=== PATIENT | female | born 1965 | race Caucasian/White ===

== ENCOUNTER 2017-03-26 18:03 | Emergency (ER) | payer MEDICAID ==
[2017-03-26] MEDS ORDERED: Sodium Chloride 0.9% 1,000 ML IV ONE ×2 (18:44→22:39)
[2017-03-26] MEDS ORDERED: Morphine 4 MG/ML VIAL ONE (19:05)
[2017-03-26] MEDS ORDERED: Sodium Chloride 0.9% 1,000 ML ONE ×2 (19:05→22:50)
[2017-03-26 19:08] LABS: BASO % 0.3 % (0.0-2.0); EOS # 0.1 K/uL (0.0-0.7); EOS % 0.5 % (0.0-4.0); HEMATOCRIT 32.5 % (34.0-47.0); LYMPH # 1.2 K/uL (1.0-4.3); LYMPH % 8.8 % (20.0-40.0); MEAN CELL VOLUME 89.5 fL (81.0-99.0); MEAN CORPUSCULAR HEMOGLOBIN 29.8 pg (27.0-31.0); MEAN CORPUSCULAR HGB CONC 33.2 g/dL (33.0-37.0); MEAN PLATELET VOLUME 7.7 fL (7.2-11.7); MONO # 0.6 K/uL (0.0-0.8); MONO % 4.3 % (0.0-10.0); PLATELET COUNT 297 K/uL (130-400); RED CELL DISTRIBUTION WIDTH 13.3 % (11.5-14.5); WHITE BLOOD COUNT 13.8 K/uL (4.8-10.8)
[2017-03-26 19:19] LABS: CHLORIDE 101 mmol/L (98-107); POTASSIUM 3.6 mmol/L (3.6-5.2); SODIUM 138 mmol/L (132-148)
[2017-03-26 19:21] LABS: BILIRUBIN,TOTAL 0.8 mg/dL (0.2-1.3); GFR AFRICAN-AMERICAN > 60
[2017-03-26 19:22] LABS: ALKALINE PHOSPHATASE 75 U/L (38-126); ALT/SGPT 23 U/L (9-52); AST/SGOT 19 U/L (14-36); BLOOD UREA NITROGEN 16 mg/dL (7-17); CARBON DIOXIDE 23 mmol/L (22-30); GLUCOSE,RANDOM 151 mg/dL (65-105)
[2017-03-26 20:21] LABS: BASOPHIL 1 % (0-2); EOSINOPHIL 1 % (0-4); NEUTROPHIL 91 % (50-75); TOTAL CELLS COUNTED 100
--- NOTE | 2017-03-26 22:30 | US ---
EXAM: US Abdomen Limited, Right Upper Quadrant CLINICAL HISTORY: 52 years old, female; Pain; Abdominal pain; Epigastric; Additional info: Ruq pain TECHNIQUE: Real-time ultrasound of the right upper quadrant with image documentation. EXAM DATE/TIME: 03/26/2017 6:45 PM COMPARISON: CT - ABD PELVIS PO IV CONTRAST 10/10/2015 1:56:36 PM FINDINGS: Liver: Liver is enlarged. Hepatic echogenicity is heterogeneous. There is hepatopedal flow in the main portal vein. Gallbladder : Gallbladder is distended with stones and sludge. Gallbladder wall measures 2.5 mm in width. Common duct in the ramesh hepatis measures 4.5 mm. Distal duct is difficult to delineate. Common bile duct: See above Pancreas: Pancreas is partially obscured by bowel gas. There is small hypoechoic lesions adjacent to the pancreatic head. Right kidney: Right kidney measures 11.4 cm in length. There is increased echogenicity of the renal pyramids. There are small renal cysts. Aorta: Visualized portions of the aorta and inferior vena cava are unremarkable. IMPRESSION: Fatty liver; nephrocalcinosis; gallstones; possible peripancreatic nodes
[2017-03-26] MEDS ORDERED: Sodium Chloride 0.9% 250 ML IV ONE (22:50)
[2017-03-26 23:06] LABS: RBC URINE 12 /hpf (0-3); URINE BACTERIA FEW (<OCC); URINE BILIRUBIN NEGATIVE (NEGATIVE); URINE BLOOD 1+ (NEGATIVE); URINE COLOR Yellow (YELLOW); URINE GLUCOSE (UA) NORMAL (Normal); URINE KETONE NEGATIVE (NEGATIVE); URINE LEUKOCYTE ESTERASE 1+ Leu/uL (Negative); URINE PROTEIN 1+ mg/dL (NEGATIVE); URINE UROBILINOGEN NORMAL mg/dL (0.2-1.0); WBC URINE 28 /hpf (0-5)
--- NOTE | 2017-03-27 00:30 | CT ---
EXAM: CT Abdomen and Pelvis Without Intravenous Contrast CLINICAL HISTORY: 52 years old, female; Pain; Abdominal pain; Localized; Right; Additional info: Right sided abdominal pain, h/o gall+kidney stones TECHNIQUE: Axial computed tomography images of the abdomen and pelvis without intravenous contrast. This CT exam was performed using one or more of the following dose reduction techniques: automated exposure control, adjustment of the mA and/or kV according to patient size, and/or use of iterative reconstruction technique. Coronal and sagittal reformatted images were created and reviewed. EXAM DATE/TIME: 03/26/2017 11:46 PM COMPARISON: CT - ABD PELVIS PO IV CONTRAST 10/10/2015 1:56:36 PM FINDINGS: Lower thorax: Heart size is normal. Bases are clear ABDOMEN: Liver: There is fatty infiltration of the liver. Liver is mildly enlarged Gallbladder and bile ducts: Gallbladder is distended. There are multiple stones. Common bile duct is mildly prominent. Pancreas: unremarkable Spleen: unremarkable Adrenals: There is a 3.2 x 2.5 cm right adrenal nodule, unchanged. Left adrenal is unremarkable. Kidneys and ureters: There are calcifications in the renal pyramids bilaterally. There is a 1.7 cm exophytic right upper pole lesion not a cyst by CT criteria.There is no pelvocaliectasis or ureterectasis. Stomach and bowel: Stomach is incompletely distended rotation is normal. There is no small bowel obstruction. Terminal ileum is unremarkable.Appendix is not visualized. There is no pericecal inflammation.Colon is incompletely distended which limits evaluation. Appendix: See stomach and bowel PELVIS: Bladder: unremarkable Reproductive: Uterus and right adnexal structures are unremarkable. There is a 4 cm left adnexal cyst. ABDOMEN and PELVIS: Intraperitoneal space: There is no significant fluid.There is no free air. Bones/joints: There is sclerosis at the sacroiliac joints greatest on the left.There are degenerative changes in the osseus structures. Soft tissues: unremarkable Vasculature: There are vascular calcifications.There are calcified phleboliths. Lymph nodes: There are shotty para-aortic nodes. Lack of oral and intravenous contrast limits evaluation of the ramesh hepatis and. Pancreatic soft tissues. IMPRESSION: Gallstones; no acute solid visceral or bowel abnormality; nephrocalcinosis, unchanged; right adrenal nodule, unchanged; prominent left adnexa with a 4 cm cyst Additional findings as described above.
--- NOTE | 2017-03-27 00:38 | C.PDOC ---
Time Seen by Provider: 03/26/17 18:37 Chief Complaint (Nursing): Abdominal Pain History Per: Patient Onset/Duration Of Symptoms: Hrs Current Symptoms Are (Timing): Still Present Severity: Moderate Location Of Pain/Discomfort: RUQ Radiation Of Pain To:: Back Associated Symptoms: Nausea, Vomiting Alleviating Factors: None Additional History Per: Prior Records Past Medical History Reviewed: Historical Data, Nursing Documentation, Vital Signs Vital Signs: Last Vital Signs Temp 98.6 F 03/26/17 18:08 Pulse 96 H 03/26/17 18:08 Resp 20 03/26/17 18:08 BP 124/65 03/26/17 19:17 Pulse Ox 96 03/26/17 18:08 - Medical History PMH: Gall Bladder Disease, HTN Surgical History: No Surg Hx Family History: States: Unknown Family Hx - Social History Hx Tobacco Use: No Hx Alcohol Use: No Hx Substance Use: No - Immunization History Hx Tetanus Toxoid Vaccination: No Hx Influenza Vaccination: Yes (08/2016) Hx Pneumococcal Vaccination: No Review Of Systems Except As Marked, All Systems Reviewed And Found Negative. Constitutional: Negative for: Fever, Weakness Cardiovascular: Negative for: Chest Pain Respiratory: Negative for: Cough, Shortness of Breath Gastrointestinal: Positive for: Nausea, Vomiting, Abdominal Pain Genitourinary: Positive for: Vaginal Bleeding (Pt is currently on her menstrual period). Negative for: Dysuria Musculoskeletal: Positive for: Back Pain. Negative for: Neck Pain Skin: Negative for: Rash Neurological: Negative for: Weakness, Numbness, Seizures, Altered Mental Status Physical Exam - Physical Exam Appears: Non-toxic, Other (Uncomfortable) Skin: Normal Color, Warm, Dry, No Rash Head: Atraumatic, Normacephalic Eye(s): bilateral: Normal Inspection, PERRL, EOMI Neck: Normal ROM, Supple Cardiovascular: Rhythm Regular Respiratory: Normal Breath Sounds, No Accessory Muscle Use Gastrointestinal/Abdominal: Soft, Tenderness (RUQ), No Guarding, No Rebound Back: CVA Tenderness (right) Extremity: Normal ROM Neurological/Psych: Oriented x3, Normal Motor, Normal Sensation ED Course And Treatment - Laboratory Results Result Diagrams: 03/26/17 19:05 03/26/17 19:05 Urine POC: Negative O2 Sat by Pulse Oximetry: 96 Pulse Ox Interpretation: Normal - CT Scan/US RUQ Sono Other Rad Studies (CT/US): Read By Radiologist, Radiology Report Reviewed CT/US Interpretation: IMPRESSION: Fatty liver; nephrocalcinosis; gallstones; possible peripancreatic nodes CT abdomen/pelvis Other Rad Studies (CT/US): Read By Radiologist, Radiology Report Reviewed CT/US Interpretation: IMPRESSION: Gallstones; no acute solid visceral or bowel abnormality;. nephrocalcinosis, unchanged; right adrenal nodule, unchanged; prominent left. adnexa with a 4 cm cyst Progress - Interventions Interventions:: Observation, Intravenous fluid - Medications Administered Intravenous: Antiemetic, H-2 elen, NSAID, Opiate - Data Reviewed Data Reviewed: Lab, Diagnostic imaging, Old records - Patient Status Patient status: Completely improved - Continuity of Care Discussed patient case with:: Patient, ED Nurse - Patient Plan Patient Plan: Discharge, F/U with PCP, Continue present meds Disposition Counseled Patient/Family Regarding: Studies Performed, Diagnosis, Need For Followup - Disposition Referrals: Bárbara Perales MD [Staff Provider] - Param Scanlon MD [Staff Provider] - Disposition: HOME/ ROUTINE Disposition Time: 00:43 Condition: IMPROVED Additional Instructions: Follow up with your kidney doctor for further evaluation of you nephrocalcinosis. Follow up with a surgeon for further evaluation of you gallstones. Return to the ER if you develop fever, vomiting, worsening of symptoms or if you have any other concerns. Instructions: Gallstones (ED) - Clinical Impression Clinical Impression: Nephrocalcinosis, Gallstones, Fatty liver
[2017-03-27 00:58] VITALS: BP 108/73; PULSE 90; RESP 18; TEMP 97.9; O2SAT 100
--- NOTE | 2017-03-28 07:54 | CARD ---
APPROVED REPORT EKG Measurement Heart [id number] <Conclusion> Normal sinus rhythm Normal ECG
== END 2017-03-27 00:58 | disposition home or self-care (01) ==
LOC: C.ER 18:03
DX: K80.20 Calculus of gallbladder without cholecystitis without obstruction (principal); E83.59 Other disorders of calcium metabolism; N29 Other disorders of kidney and ureter in diseases classified elsewhere; K76.0 Fatty (change of) liver, not elsewhere classified
CPT/HCPCS: 74176; 76705; 80053; 81001; 83690; 84703; 85025; 85610; 85730; 93005; 96361; 96374; 96375; 99285; J1885; J2270; J2765; J7040

== ENCOUNTER 2017-08-30 09:32 | Inpatient (IN) | payer MEDICAID ==
[2017-08-30] MEDS ORDERED: Sodium Chloride 0.9% 1,000 ML IV ONE ×2 (10:04→11:27)
--- NOTE | 2017-08-30 10:06 | C.PDOC ---
History Of Present Illness 52 y/o female presents to ED with c/o diffuse abdominal pain associated with vomiting since yesterday . Patient reports cholecystectomy 2 months ago. Denies fever, chills, diarrhea. Time Seen by Provider: 08/30/17 09:41 Chief Complaint (Nursing): Abdominal Pain History Per: Patient History/Exam Limitations: no limitations Onset/Duration Of Symptoms: Days Current Symptoms Are (Timing): Still Present Location Of Pain/Discomfort: Diffuse Radiation Of Pain To:: None Associated Symptoms: Vomiting. denies: Fever, Diarrhea, Back Pain, Chest Pain Recent travel outside of the [place]: No Past Medical History Reviewed: Historical Data, Nursing Documentation, Vital Signs Vital Signs: Last Vital Signs Temp 100.7 F H 08/30/17 15:40 Pulse 102 H 08/30/17 15:40 Resp 16 08/30/17 15:40 BP 105/48 L 08/30/17 15:40 Pulse Ox 100 08/30/17 15:40 - Medical History PMH: Gall Bladder Disease, HTN Surgical History: Cholecystectomy Family History: States: Unknown Family Hx - Social History Hx Tobacco Use: No Hx Alcohol Use: No Hx Substance Use: No - Immunization History Hx Tetanus Toxoid Vaccination: No Hx Influenza Vaccination: Yes (08/2016) Hx Pneumococcal Vaccination: No Review Of Systems Except As Marked, All Systems Reviewed And Found Negative. Constitutional: Negative for: Fever Respiratory: Negative for: Cough, Wheezing Gastrointestinal: Positive for: Vomiting, Abdominal Pain Skin: Negative for: Rash Physical Exam - Physical Exam Appears: Non-toxic, No Acute Distress Skin: Warm, Dry Head: Atraumatic, Normacephalic Oral Mucosa: Moist Chest: Symmetrical Cardiovascular: Rhythm Regular Respiratory: Normal Breath Sounds, No Rales, No Rhonchi, No Wheezing Gastrointestinal/Abdominal: Soft, Tenderness (diffuse greatest in upper abdomen) , No Guarding, No Rebound Back: Normal Inspection Extremity: Normal ROM, Capillary Refill (< 2 sec. ) Neurological/Psych: Oriented x3, Normal Speech, Normal Cognition Gait: Steady ED Course And Treatment - Laboratory Results Result Diagrams: 08/30/17 10:13 08/30/17 10:13 Lab Interpretation: Abnormal ECG: Interpreted By Me ECG Rhythm: Sinus Tachycardia ECG Interpretation: No Acute Changes Rate From EC O2 Sat by Pulse Oximetry: 100 (RA) Pulse Ox Interpretation: Normal - Other Rad No standard instances X-Ray: Viewed By Me, Read By Radiologist Interpretation: FINDINGS: LOWER THORAX: Unremarkable. LIVER: Unremarkable. No gross lesion or ductal dilatation. GALLBLADDER AND BILE DUCTS: Interval cholecystectomy. PANCREAS: Unremarkable. No gross lesion or ductal dilatation. SPLEEN: Unremarkable. ADRENALS: Stable appearance of right adrenal adenoma. KIDNEYS AND URETERS: Right upper pole exophytic cyst redemonstrated. Calcified renal pyramids bilaterally. No hydronephrosis. VASCULATURE: Unremarkable. No aortic aneurysm. BOWEL: Unremarkable. No obstruction. No gross mural thickening. APPENDIX: Nonvisualized. PERITONEUM: Soft tissue lesions measuring up to 1.9 centimeter (series 3, image 64), 1.6 centimeter (series 3, image 72 and up to 2.5 centimeter (series 3, image 80) in the right upper quadrant with surrounding hazy change. The largest of the appears to have a radiopacity within its center. No free fluid. No free air. LYMPH NODES: Unremarkable. No enlarged lymph nodes. BLADDER: Unremarkable. REPRODUCTIVE: Prominent right adnexa. BONES: No acute fracture. OTHER FINDINGS: None. IMPRESSION: Interval cholecystectomy. Right upper quadrant soft tissue lesions with surrounding hazy change, the largest of which measures up to 2.5 centimeter and is located along the medial border of the inferior right hepatic lobe and appears to contain a radiopacity within its center. These are felt to most likely represent dropped gallstones with surrounding inflammatory change. However, metastatic deposits from an unknown primary cannot be excluded. No organized, drainable fluid collection is present. Additional stable findings as above. - CT Scan/US No standard instances Other Rad Studies (CT/US): Read By Radiologist, Radiology Report Reviewed CT/US Interpretation: FINDINGS: LIVER: Measures 18.8 cm in sagittal dimension. Echogenic liver may be seen in setting of hepatic parenchymal disease or fatty infiltration. The main portal vein appears patent with normal directional flow. No intrahepatic bile duct dilatation. Hypoechoic 2.5 x 1.9 x 3.1 cm lesion at the level the right hepatic lobe. This does not appear to represent the known right-sided adrenal mass seen on CT performed 03/27/17. GALLBLADDER: Cholecystectomy. COMMON BILE DUCT: Measures 1.2 cm. PANCREAS: The pancreas is not well visualized. Hypoechoic lesion noted at the level of the pancreatic head/ body measures approximately 2.5 x 1.8 x 2.6 cm. RIGHT KIDNEY: Measures 12.6 x 4.2 x 5.0cm. No obstructing calculus or hydronephrosis identified. Nonobstructing calculi. LEFT KIDNEY: Measures 11.2 x 4.9 x 4.8cm. No obstructing calculus or hydronephrosis identified. Nonobstructing calculi. SPLEEN: Measures approximately 11.1 cm. AORTA: Limited views appear unremarkable. IVC: Limited views appear unremarkable. OTHER FINDINGS: None. IMPRESSION: Hypoechoic 2.5 x 1.9 x 3.1 cm lesion at the level the right hepatic lobe. This does not appear to represent the known right-sided adrenal mass seen on CT performed 03/27/17. Suggest further evaluation with cross-sectional imaging. The pancreas is not well visualized. Hypoechoic lesion noted at the level of the pancreatic head/ body measures approximately 2.5 x 1.8 x 2.6 cm. Considerations include malignant neoplasm or adenopathy which must be excluded. Recommend clinical correlation. Suggest dedicated pancreatic protocol CT if indicated. Nonobstructing bilateral renal calculi. Echogenic liver may be seen in setting of hepatic parenchymal disease or fatty infiltration. Cholecystectomy. Progress Note: Treated with zofran and IVF NSS. treated with additional IVF and toradol. On re-evaluation abdomen soft mild upper abdominal tenderness. Treated with zosyn and morphine. Case discussed and patient evaluated by surgical aides teacher - Physician Consult Information Physician Contacted: Darvin Ford Disposition Discussed With : Darvin Ford Doctor Will See Patient In The: Hospital - Disposition Disposition: HOSPITALIZED Disposition Time: 15:15 Condition: STABLE - POA Present On Arrival: None - Clinical Impression Clinical Impression: Leukocytosis, Abdominal pain - PA / FIELD SALES CONSULTANT / Resident Statement MD/DO has reviewed & agrees with the documentation as recorded. - Scribe Statement The provider has reviewed the documentation as recorded by the Scribe All medical record entries made by the Scribe were at my direction and personally dictated by me. I have reviewed the chart and agree that the record accurately reflects my personal performance of the history, physical exam, medical decision making, and the department course for this patient. I have also personally directed, reviewed, and agree with the discharge instructions and disposition. Decision To Admit - Pt Status Changed To: Hospital Disposition Of: Inpatient - Admit Certification Admit to Inpatient:: After my assessment, the patient will require hospitalization for at least two midnights. This is because of the severity of symptoms shown, intensity of services needed, and/or the medical risk in this patient being treated as an outpatient. - InPatient: Physician Admission Certification:: Abdominal Pain - . Bed Request Type: Regular Admitting Physician: Darvin Ford Patient Diagnosis: Abdominal pain, Leukocytosis
[2017-08-30] MEDS ORDERED: Sodium Chloride 0.9% 0 ML ONE (10:15)
[2017-08-30 10:17] LABS: BASO % 0.1 % (0.0-2.0); EOS % 0.1 % (0.0-4.0); HEMATOCRIT 33.5 % (34.0-47.0); LYMPH # 0.6 K/uL (1.0-4.3); LYMPH % 3.8 % (20.0-40.0); MEAN CELL VOLUME 88.8 fL (81.0-99.0); MEAN CORPUSCULAR HEMOGLOBIN 29.6 pg (27.0-31.0); MEAN CORPUSCULAR HGB CONC 33.3 g/dL (33.0-37.0); MEAN PLATELET VOLUME 7.3 fL (7.2-11.7); MONO # 0.4 K/uL (0.0-0.8); MONO % 2.4 % (0.0-10.0); NRBC % 0.1 % (0.0-2.0); PLATELET COUNT 363 K/uL (130-400); RED CELL DISTRIBUTION WIDTH 14.1 % (11.5-14.5)
[2017-08-30 10:34] LABS: POTASSIUM 3.5 mmol/L (3.6-5.2); TOTAL PROTEIN 9.3 g/dL (6.3-8.3)
[2017-08-30 10:35] LABS: ALB/GLOB RATIO 0.8 (1.0-2.1)
[2017-08-30 10:36] LABS: BILIRUBIN,TOTAL 1.5 mg/dL (0.2-1.3); CALCIUM 8.5 mg/dl (8.6-10.4)
[2017-08-30 11:10] LABS: NEUTROPHIL 85 % (50-75); TOTAL CELLS COUNTED 100
[2017-08-30] MEDS ORDERED: Sodium Chloride 0.9% 1,000 ML ONE (11:36)
[2017-08-30 11:48] LABS: RBC URINE 11 /hpf (0-3); URINE BACTERIA RARE (<OCC); URINE BILIRUBIN NEGATIVE (NEGATIVE); URINE BLOOD 1+ (NEGATIVE); URINE COLOR Yellow (YELLOW); URINE GLUCOSE (UA) NORMAL (Normal); URINE KETONE NEGATIVE (NEGATIVE); URINE LEUKOCYTE ESTERASE 1+ Leu/uL (Negative); URINE PROTEIN 2+ mg/dL (NEGATIVE); URINE UROBILINOGEN NORMAL mg/dL (0.2-1.0); WBC URINE 21 /hpf (0-5)
--- NOTE | 2017-08-30 12:43 | US ---
HISTORY: Pain COMPARISON: CT abdomen and pelvis without contrast performed 03/27/17 TECHNIQUE: Sonographic evaluation of the abdomen. FINDINGS: LIVER: Measures 18.8 cm in sagittal dimension. Echogenic liver may be seen in setting of hepatic parenchymal disease or fatty infiltration. The main portal vein appears patent with normal directional flow. No intrahepatic bile duct dilatation. Hypoechoic 2.5 x 1.9 x 3.1 cm lesion at the level the right hepatic lobe. This does not appear to represent the known right-sided adrenal mass seen on CT performed 03/27/17. GALLBLADDER: Cholecystectomy. COMMON BILE DUCT: Measures 1.2 cm. PANCREAS: The pancreas is not well visualized. Hypoechoic lesion noted at the level of the pancreatic head/ body measures approximately 2.5 x 1.8 x 2.6 cm. RIGHT KIDNEY: Measures 12.6 x 4.2 x 5.0cm. No obstructing calculus or hydronephrosis identified. Nonobstructing calculi. LEFT KIDNEY: Measures 11.2 x 4.9 x 4.8cm. No obstructing calculus or hydronephrosis identified. Nonobstructing calculi. SPLEEN: Measures approximately 11.1 cm. AORTA: Limited views appear unremarkable. IVC: Limited views appear unremarkable. OTHER FINDINGS: None. IMPRESSION: Hypoechoic 2.5 x 1.9 x 3.1 cm lesion at the level the right hepatic lobe. This does not appear to represent the known right-sided adrenal mass seen on CT performed 03/27/17. Suggest further evaluation with cross-sectional imaging. The pancreas is not well visualized. Hypoechoic lesion noted at the level of the pancreatic head/ body measures approximately 2.5 x 1.8 x 2.6 cm. Considerations include malignant neoplasm or adenopathy which must be excluded. Recommend clinical correlation. Suggest dedicated pancreatic protocol CT if indicated. Nonobstructing bilateral renal calculi. Echogenic liver may be seen in setting of hepatic parenchymal disease or fatty infiltration. Cholecystectomy.
[2017-08-30] MEDS ORDERED: Petrolatum Oint Foilpak (5 gm) ONE (14:36)
--- NOTE | 2017-08-30 14:50 | CT ---
PROCEDURE: CT Abdomen and Pelvis without intravenous contrast HISTORY: Pain COMPARISON: CT scan of the abdomen pelvis dated 03/27/2017. TECHNIQUE: Radiation dose: Total exam DLP = 444.7 mGy-cm. This CT exam was performed using one or more of the following dose reduction techniques: Automated exposure control, adjustment of the mA and/or kV according to patient size, and/or use of iterative reconstruction technique. FINDINGS: LOWER THORAX: Unremarkable. LIVER: Unremarkable. No gross lesion or ductal dilatation. GALLBLADDER AND BILE DUCTS: Interval cholecystectomy. PANCREAS: Unremarkable. No gross lesion or ductal dilatation. SPLEEN: Unremarkable. ADRENALS: Stable appearance of right adrenal adenoma. KIDNEYS AND URETERS: Right upper pole exophytic cyst redemonstrated. Calcified renal pyramids bilaterally. No hydronephrosis. VASCULATURE: Unremarkable. No aortic aneurysm. BOWEL: Unremarkable. No obstruction. No gross mural thickening. APPENDIX: Nonvisualized. PERITONEUM: Soft tissue lesions measuring up to 1.9 centimeter (series 3, image 64), 1.6 centimeter (series 3, image 72 and up to 2.5 centimeter (series 3, image 80) in the right upper quadrant with surrounding hazy change. The largest of the appears to have a radiopacity within its center. No free fluid. No free air. LYMPH NODES: Unremarkable. No enlarged lymph nodes. BLADDER: Unremarkable. REPRODUCTIVE: Prominent right adnexa. BONES: No acute fracture. OTHER FINDINGS: None. IMPRESSION: Interval cholecystectomy. Right upper quadrant soft tissue lesions with surrounding hazy change, the largest of which measures up to 2.5 centimeter and is located along the medial border of the inferior right hepatic lobe and appears to contain a radiopacity within its center. These are felt to most likely represent dropped gallstones with surrounding inflammatory change. However, metastatic deposits from an unknown primary cannot be excluded. No organized, drainable fluid collection is present. Additional stable findings as above. Findings conveyed to Dr. London by Dr. Albarado at 2:45 p.m. on 08/30/2017.
[2017-08-30] MEDS ORDERED: Piperacillin/Tazobact 3.375 gm 100 ML IV STA (15:07)
[2017-08-30] MEDS ORDERED: Morphine 4 MG/ML VIAL ONE (15:44)
[2017-08-30] MEDS ORDERED: Piperacill/Tazo 3.375gm in Dex 3.375 GM/50 ML BAG IVPB ONE (16:00)
--- NOTE | 2017-08-30 16:19 | RAD ---
HISTORY: SOB COMPARISON: None available. TECHNIQUE: Chest, one view. FINDINGS: Examination limited by habitus. LUNGS: No focal consolidation. Please note that chest x-ray has limited sensitivity for the detection of pulmonary masses. PLEURA: No significant pleural effusion identified. No definite pneumothorax . CARDIOVASCULAR: The cardiomediastinal silhouette appears within normal limits of size. OSSEOUS STRUCTURES: No acute osseous abnormality identified. VISUALIZED UPPER ABDOMEN: Unremarkable. OTHER FINDINGS: None. IMPRESSION: No focal consolidation, significant pleural effusion, or definite pneumothorax identified.
[2017-08-30] MEDS ORDERED: Cefepime IV 1 gm in Dextrose 1 GM/50 ML BAG IVPB SCH (17:00)
--- NOTE | 2017-08-30 17:13 | CP.PCM.CON ---
<Gavino Doty - Last Filed: 08/30/17 17:07> History of Present Illness - History of Present Illness History of Present Illness: Surgery: Dr. Wynn CC: Abd pain HPI: 52F w. pmh of HTN, underwent laparoscopic cholecystectomy w. Dr. Castillo at [facility] about 2 months ago. Post-operatively pt was doing well until last night when she developed sharp epigastric pain which was constant and radiated to her back. She denies any alleviating or aggravating factors. She states that the pain is accompanied by decreased appetite and multiple episodes of nausea and vomiting which was NBNB. Pt denies diarrhea. She does have fever and chills. In ED pt was found to have leukocytosis, transaminitis, and CT showed questionable stone in CBD. PMH: HTN PSH: cyst removal from skin, cholecystectomy Meds: MAR reviewed NKDA Social: no ETOH/tobacco/drugs Fhx: non-contirbutory Review of Systems - Review of Systems All systems: reviewed and no additional remarkable complaints except (HPI) Past Patient History - Infectious Disease Hx of Infectious Diseases: None - Past Social History Smoking Status: Never Smoked - CARDIAC Hx Hypertension: Yes - GASTROINTESTINAL Hx Gall Bladder Disease: Yes - PSYCHIATRIC Hx Substance Use: No - SURGICAL HISTORY Hx Cholecystectomy: Yes - ANESTHESIA Hx Anesthesia: Yes Hx Anesthesia Reactions: No Meds Allergies/Adverse Reactions: Allergies Allergy/AdvReac Type Severity Reaction Status Date / Time No Known Allergies Allergy Verified 03/26/17 18:11 - Medications Medications: Current Medications Enoxaparin Sodium (Lovenox) 40 mg SC DAILY [facility] Famotidine (Pepcid) 20 mg IVP Q12 [facility] Cefepime HCl (Maxipime Iv 1 Gm Premix) 1 gm in 50 mls @ 100 mls/hr IVPB Q12H [facility] Potassium Chloride/Dextrose/Sod Cl (Potassium Chl 20 Meq In D5-1/2ns) 1,000 mls @ 100 mls/hr IV .Q10H [facility] Potassium Chloride 10 meq/ (Sodium Chloride) 105 mls @ 100 mls/hr IV ONCE ONE Stop: 08/30/17 18:02 Morphine Sulfate (Morphine) 2 mg IVP Q4 PRN PRN Reason: Pain, moderate (4-7) Ondansetron HCl (Zofran Inj) 4 mg IVP Q8 PRN PRN Reason: Nausea/Vomiting Physical Exam - Constitutional Appears: Non-toxic, No Acute Distress - Head Exam Head Exam: ATRAUMATIC, NORMOCEPHALIC - Eye Exam Eye Exam: EOMI Pupil Exam: NORMAL ACCOMODATION - ENT Exam ENT Exam: Mucous Membranes Moist - Neck Exam Neck exam: Positive for: Full Rom - Respiratory Exam Respiratory Exam: NORMAL BREATHING PATTERN. absent: Accessory Muscle Use, Respiratory Distress - GI/Abdominal Exam GI & Abdominal Exam: Soft, Tenderness (epigastric). absent: Distended, Firm, Guarding, Rebound, Rigid - Extremities Exam Extremities exam: Negative for: calf tenderness, pedal edema - Neurological Exam Neurological exam: Alert, Oriented x3 - Psychiatric Exam Psychiatric exam: Normal Affect, Normal Mood - Skin Skin Exam: Dry, Normal Color, Warm Results - Vital Signs Recent Vital Signs: Last Vital Signs Temp 100.7 F H 08/30/17 15:40 Pulse 102 H 08/30/17 15:40 Resp 16 08/30/17 15:40 BP 105/48 L 08/30/17 15:40 Pulse Ox 100 08/30/17 15:48 - Labs Result Diagrams: 08/30/17 10:13 08/30/17 10:13 Labs: Laboratory Results - last 24 hr 08/30/17 08/30/17 08/30/17 10:13 10:13 10:13 WBC 16.0 H RBC 3.77 L Hgb 11.2 Hct 33.5 L MCV 88.8 MCH 29.6 MCHC 33.3 RDW 14.1 Plt Count 363 MPV 7.3 Neut % (Auto) 93.6 H Lymph % (Auto) 3.8 L [place] % (Auto) 2.4 Eos % (Auto) 0.1 Baso % (Auto) 0.1 Neut # 15.0 H Lymph # 0.6 L Cuming # 0.4 Eos # 0.0 Baso # 0.0 Neutrophils % (Manual) 85 H Band Neutrophils % 11 H* Lymphocytes % (Manual) 2 L Monocytes % (Manual) 2 Platelet Estimate Normal RBC Morphology Normal Sodium 134 Potassium 3.5 L Chloride 99 Carbon Dioxide 20 L Anion Gap 19 BUN 26 H Creatinine 1.2 Est GFR ( Amer) 57 Est GFR (Non-Af Amer) 47 Random Glucose 173 H Calcium 8.5 L Total Bilirubin 1.5 H AST 160 H ALT 147 H D Alkaline Phosphatase 179 H Total Protein 9.3 H Albumin 4.2 Globulin 5.1 H Albumin/Globulin Ratio 0.8 L Amylase 116 H Lipase 157 Urine Color Urine Clarity Urine pH Ur Specific [place] Urine Protein Urine Glucose (UA) Urine Ketones Urine Blood Urine Nitrate Urine Bilirubin Urine Urobilinogen Ur Leukocyte Esterase Urine WBC (Auto) Urine RBC (Auto) Ur Squamous Epith Cells Urine Bacteria 08/30/17 11:41 WBC RBC Hgb Hct MCV MCH MCHC RDW Plt Count MPV Neut % (Auto) Lymph % (Auto) [place] % (Auto) Eos % (Auto) Baso % (Auto) Neut # Lymph # [place] # Eos # Baso # Neutrophils % (Manual) Band Neutrophils % Lymphocytes % (Manual) Monocytes % (Manual) Platelet Estimate RBC Morphology Sodium Potassium Chloride Carbon Dioxide Anion Gap BUN Creatinine Est GFR ( Amer) Est GFR (Non-Af Amer) Random Glucose Calcium Total Bilirubin AST ALT Alkaline Phosphatase Total Protein Albumin Globulin Albumin/Globulin Ratio Amylase Lipase Urine Color Yellow Urine Clarity [place] Urine pH 5.0 Ur Specific [place] 1.013 Urine Protein 2+ H Urine Glucose (UA) Normal Urine Ketones Negative Urine Blood 1+ H Urine Nitrate Negative Urine Bilirubin Negative Urine Urobilinogen Normal Ur Leukocyte Esterase 1+ H Urine WBC (Auto) 21 H Urine RBC (Auto) 11 H Ur Squamous Epith Cells 5 Urine Bacteria Rare - Imaging and Cardiology US - abdomen Status: Image reviewed by me, Report reviewed by me CT scan - abdomen Status: Image reviewed by me, Report reviewed by me Assessment & Plan - Assessment and Plan (Free Text) Assessment: 52F s/p lap moses w. abd pain, possibly 2/2 retained CBD stone -will order MRCP, f/u results -abx -pain management -IVF -f/u GI recommendations -d/w attending Soren PGY3 <Kody Wynn - Last Filed: 09/08/17 22:29> Results - Vital Signs Recent Vital Signs: Last Vital Signs Temp 97.8 F 09/06/17 08:00 Pulse 97 H 09/06/17 08:00 Resp 20 09/06/17 08:00 BP 116/69 09/06/17 08:00 Pulse Ox 97 09/06/17 08:00 - Labs Result Diagrams: 09/05/17 17:01 09/05/17 17:01 Attending/Attestation - Attestation I have personally seen and examined this patient.: Yes I have fully participated in the care of the patient.: Yes I have reviewed all pertinent clinical information: Yes Notes (Text): Pt was seen and examined at bedside Agree with above note and assessment Pt with abdominal pain, Possible retained CBD stone Labs and radiology reviewed Abdomen is non tender. NPO, IVF c.w current mx GI consult for ERCP Plan d/w pt in detail Plan d.w PMD Risk and benefit explained in detail.
[2017-08-30] MEDS ORDERED: Gadodiamide 287 MG/ML VIAL (15ML) IV ONE (18:15)
[2017-08-30] MEDS: Potassium Ch 20mEq in D5-1/2NS 1,000 ML IV SCH (19:30)
--- NOTE | 2017-08-30 23:25 | CP.PCM.HP ---
History of Present Illness - History of Present Illness History of Present Illness: CC: Abd pain, nausea HPI: 52 gyanese F w. pmh of HTN, underwent laparoscopic cholecystectomy w. Dr. Castillo at [facility] about 2 months ago. Post-operatively pt was doing well until last night when she developed sharp epigastric pain which was constant and radiated to her back. She denies any alleviating or aggravating factors. She states that the pain is accompanied by decreased appetite and multiple episodes of nausea and vomiting which was NBNB. Pt denies diarrhea. She does have fever and chills. In ED pt was found to have leukocytosis, transaminitis, and CT showed questionable stone in CBD.no dysuria, frequency. PMH: HTN PSH: cyst removal from skin, cholecystectomy Meds: MAR reviewed NKDA Social: no ETOH/tobacco/drugs Fhx: non-contirbutory Present on Admission - Present on Admission Any Indicators Present on Admission: Yes Review of Systems - Review of Systems Systems not reviewed;Unavailable: Unstable Vital Signs - Constitutional Constitutional: Chills, Fatigue, Fever, Lethargy, Weakness - EENT Eyes: absent: As Per HPI, Blind Spots, Blurred Vision, Change in Vision, Decreased Night Vision, Diplopia, Discharge, Dry Eye, Exophthalmos, Floaters, Irritation, Itchy Eyes, Loss of Peripheral Vision, Pain, Photophobia, Requires Corrective Lenses, Sees Flashes, Spots in Vision, Tunnel Vision, Other Visual Disturbances, Loss of Vision, Other Nose/Mouth/Throat: absent: As Per HPI, Epistaxis, Nasal Congestion, Nasal Discharge, Nasal Obstruction, Nasal Trauma, Nose Pain, Post Nasal Drip, Sinus Pain, Sinus Pressure, Bleeding Gums, Change in Voice, Dental Pain, Dry Mouth, Dysphagia, Halitosis, Hoarsness, Lip Swelling, Mouth Lesions, Mouth Pain, Odynophagia, Sore Throat, Throat Swelling, Tongue Swelling, Facial Pain, Neck Pain, Neck Mass, Other - Cardiovascular Cardiovascular: absent: As Per HPI, Acrocyanosis, Chest Pain, Chest Pain at Rest , Chest Pain with Activity, Claudication, Diaphoresis, Dyspnea, Dyspnea on Exertion, Edema, Irregular Heart Rhythm, Pain Radiating to Arm/Neck/Jaw, Leg Edema, Leg Ulcers, Lightheadedness, Orthopnea, Palpitations, Paroxysmal Nocturnal Dyspnea, Pedal Edema, Radiating Pain, Rapid Heart Rate, Slow Heart Rate, Syncope, Other - Respiratory Respiratory: absent: As Per HPI, Cough, Dyspnea, Hemoptysis, Dyspnea on Exertion , Wheezing, Snoring, Stridor, Pain on Inspiration, Chest Congestion, Excessive Mucous Production, Change in Mucous Color, Pain with Coughing, Other - Gastrointestinal Gastrointestinal: Abdominal Pain, Nausea - Genitourinary Genitourinary: absent: As Per HPI, Change in Urinary Stream, Difficulty Urinating, Dysuria, Flank Pain, Hematuria, Pyuria, Nocturia, Urinary Incontinence, Urinary Frequency, Urinary Hesitance, Urinary Urgency, Voiding Freq/Small Amts, Freq UTI, Hx Renal/Bladder Calculi, Hx /Renal Surgery, Bladder Distension, Other Past Patient History - Infectious Disease Hx of Infectious Diseases: None - Past Medical History & Family History Past Medical History?: Yes - Past Social History Smoking Status: Never Smoked - CARDIAC Hx Cardiac Disorders: Yes Hx Hypertension: Yes - PULMONARY Hx Respiratory Disorders: No - NEUROLOGICAL Hx Neurological Disorder: No - HEENT Hx HEENT Problems: No - RENAL Hx Chronic Kidney Disease: No - ENDOCRINE/METABOLIC Hx Endocrine Disorders: No - HEMATOLOGICAL/ONCOLOGICAL Hx Blood Disorders: No - INTEGUMENTARY Hx Dermatological Problems: No - MUSCULOSKELETAL/RHEUMATOLOGICAL Hx Musculoskeletal Disorders: No Hx Falls: No - GASTROINTESTINAL Hx Gastrointestinal Disorders: Yes Hx Gall Bladder Disease: Yes - GENITOURINARY/GYNECOLOGICAL Hx Genitourinary Disorders: No - PSYCHIATRIC Hx Psychophysiologic Disorder: No Hx Substance Use: No - SURGICAL HISTORY Hx Surgeries: Yes Hx Cholecystectomy: Yes - ANESTHESIA Hx Anesthesia: Yes Hx Anesthesia Reactions: No Hx Malignant Hyperthermia: No Has any member of the family had a problem w/ anesthesia?: No Meds Allergies/Adverse Reactions: Allergies Allergy/AdvReac Type Severity Reaction Status Date / Time No Known Allergies Allergy Verified 03/26/17 18:11 Physical Exam - Constitutional Appears: No Acute Distress - Head Exam Head Exam: ATRAUMATIC, NORMAL INSPECTION, NORMOCEPHALIC - Eye Exam Eye Exam: EOMI, Normal appearance, PERRL Pupil Exam: NORMAL ACCOMODATION, PERRL - ENT Exam ENT Exam: Mucous Membranes Moist, Normal Exam - Respiratory Exam Respiratory Exam: Clear to Auscultation Bilateral, NORMAL BREATHING PATTERN - Cardiovascular Exam Cardiovascular Exam: REGULAR RHYTHM - GI/Abdominal Exam GI & Abdominal Exam: Tenderness Additional comments: epigastric tend - Back Exam Back exam: NORMAL INSPECTION - Neurological Exam Neurological exam: Alert, CN II-XII Intact, Normal Gait, Oriented x3, Reflexes Normal - Psychiatric Exam Psychiatric exam: Normal Affect, Normal Mood Results - Vital Signs Recent Vital Signs: Last Vital Signs Temp 97.3 F L 08/30/17 19:00 Pulse 88 08/30/17 19:00 Resp 20 08/30/17 19:00 BP 107/71 08/30/17 19:00 Pulse Ox 98 08/30/17 19:00 - Labs Result Diagrams: 09/01/17 19:52 09/01/17 19:52 Labs: Laboratory Results - last 24 hr 08/30/17 08/30/17 08/30/17 10:13 10:13 10:13 WBC 16.0 H RBC 3.77 L Hgb 11.2 Hct 33.5 L MCV 88.8 MCH 29.6 MCHC 33.3 RDW 14.1 Plt Count 363 MPV 7.3 Neut % (Auto) 93.6 H Lymph % (Auto) 3.8 L [place] % (Auto) 2.4 Eos % (Auto) 0.1 Baso % (Auto) 0.1 Neut # 15.0 H Lymph # 0.6 L [place] # 0.4 Eos # 0.0 Baso # 0.0 Neutrophils % (Manual) 85 H Band Neutrophils % 11 H* Lymphocytes % (Manual) 2 L Monocytes % (Manual) 2 Platelet Estimate Normal RBC Morphology Normal Sodium 134 Potassium 3.5 L Chloride 99 Carbon Dioxide 20 L Anion Gap 19 BUN 26 H Creatinine 1.2 Est GFR ( Amer) 57 Est GFR (Non-Af Amer) 47 Random Glucose 173 H Calcium 8.5 L Total Bilirubin 1.5 H AST 160 H ALT 147 H D Alkaline Phosphatase 179 H Total Protein 9.3 H Albumin 4.2 Globulin 5.1 H Albumin/Globulin Ratio 0.8 L Amylase 116 H Lipase 157 Urine Color Urine Clarity Urine pH Ur Specific [place] Urine Protein Urine Glucose (UA) Urine Ketones Urine Blood Urine Nitrate Urine Bilirubin Urine Urobilinogen Ur Leukocyte Esterase Urine WBC (Auto) Urine RBC (Auto) Ur Squamous Epith Cells Urine Bacteria 08/30/17 11:41 WBC RBC Hgb Hct MCV MCH MCHC RDW Plt Count MPV Neut % (Auto) Lymph % (Auto) [place] % (Auto) Eos % (Auto) Baso % (Auto) Neut # Lymph # [place] # Eos # Baso # Neutrophils % (Manual) Band Neutrophils % Lymphocytes % (Manual) Monocytes % (Manual) Platelet Estimate RBC Morphology Sodium Potassium Chloride Carbon Dioxide Anion Gap BUN Creatinine Est GFR ( Amer) Est GFR (Non-Af Amer) Random Glucose Calcium Total Bilirubin AST ALT Alkaline Phosphatase Total Protein Albumin Globulin Albumin/Globulin Ratio Amylase Lipase Urine Color Yellow Urine Clarity [place] Urine pH 5.0 Ur Specific [place] 1.013 Urine Protein 2+ H Urine Glucose (UA) Normal Urine Ketones Negative Urine Blood 1+ H Urine Nitrate Negative Urine Bilirubin Negative Urine Urobilinogen Normal Ur Leukocyte Esterase 1+ H Urine WBC (Auto) 21 H Urine RBC (Auto) 11 H Ur Squamous Epith Cells 5 Urine Bacteria Rare Assessment & Plan (1) Elevated LFTs Status: Acute (2) Gastritis Status: Acute (3) Abdominal pain Status: Acute - Assessment and Plan (Free Text) Plan: detailed orders wiritten admit pt is seen and examined
[2017-08-31] MEDS: Cefepime IV 1 gm in Dextrose 1 GM/50 ML BAG IVPB SCH ×3 (00:26→11:15)
[2017-08-31] MEDS: Potassium Ch 20mEq in D5-1/2NS 1,000 ML IV SCH ×3 (02:34→21:42)
--- NOTE | 2017-08-31 07:25 | CP.PCM.PN ---
<BethJuanjose - Last Filed: 08/31/17 11:21> Subjective - Date & Time of Evaluation Date of Evaluation: 08/31/17 Time of Evaluation: 07:10 - Subjective Subjective: General Surgery Note for Dr. Wynn Patient seen and examined at bedside. No acute event overnight. Patient still complaining of abdominal pain and states it is same as yesterday. She is currently denying nausea/vomiting. Patient is NPO. No other complaints at this time. Objective - Vital Signs/Intake and Output Vital Signs (last 24 hours): Temp Pulse Resp BP Pulse Ox 97.3 F L 72 20 94/59 L 98 08/31/17 00:00 08/31/17 00:00 08/31/17 00:00 08/31/17 00:00 08/31/17 00:00 Intake and Output: 08/31/17 08/31/17 06:59 18:59 Intake Total 400 800 Balance 400 800 - Medications Medications: Current Medications Enoxaparin Sodium (Lovenox) 40 mg SC DAILY [facility] Famotidine (Pepcid) 20 mg IVP Q12 [facility] Last Admin: 08/30/17 22:16 Dose: 20 mg Potassium Chloride/Dextrose/Sod Cl (Potassium Chl 20 Meq In D5-1/2ns) 1,000 mls @ 100 mls/hr IV .Q10H [facility] Last Admin: 08/31/17 06:13 Dose: 100 mls/hr Cefepime HCl (Maxipime Iv 1 Gm Premix) 1 gm in 50 mls @ 100 mls/hr IVPB Q12H [facility] Last Admin: 08/31/17 00:26 Dose: 100 mls/hr Morphine Sulfate (Morphine) 2 mg IVP Q4 PRN PRN Reason: Pain, moderate (4-7) Ondansetron HCl (Zofran Inj) 4 mg IVP Q8 PRN PRN Reason: Nausea/Vomiting - Labs Labs: 08/30/17 10:13 08/30/17 10:13 - Constitutional Appears: No Acute Distress - Head Exam Head Exam: ATRAUMATIC, NORMOCEPHALIC - Eye Exam Eye Exam: EOMI, Normal appearance. absent: Scleral icterus - ENT Exam ENT Exam: Mucous Membranes Moist - Respiratory Exam Respiratory Exam: NORMAL BREATHING PATTERN - Cardiovascular Exam Cardiovascular Exam: REGULAR RHYTHM - GI/Abdominal Exam GI & Abdominal Exam: Soft, Tenderness (RUQ/epigastric). absent: Distended, Firm , Guarding, Rigid, Rebound - Extremities Exam Extremities Exam: Normal Capillary Refill - Back Exam Back Exam: absent: CVA tenderness (L), CVA tenderness (R) - Neurological Exam Neurological Exam: Alert, Awake, Oriented x3 - Psychiatric Exam Psychiatric exam: Normal Affect, Normal Mood - Skin Skin Exam: Dry, Intact, Normal Color, Warm Assessment and Plan - Assessment and Plan (Free Text) Plan: 52F s/p laparoscopic cholecystectomy with abdominal pain, possibly secondary to retained CBD stone -MRCP shows two lesion in liver that could possibly be stones with surrounding inflammation and hyperechoic lesion in pancreas hematoma vs mass. -Continue IV antibiotics -IV Fluids -f/u GI recommendations -Analgesics/Anti-emetics -Discussed with Dr. Rachel Campos PGY1 <Kody Wynn B - Last Filed: 09/08/17 22:31> Objective - Vital Signs/Intake and Output Vital Signs (last 24 hours): Temp Pulse Resp BP Pulse Ox 97.8 F 97 H 20 116/69 97 09/06/17 08:00 09/06/17 08:00 09/06/17 08:00 09/06/17 08:00 09/06/17 08:00 - Labs Labs: 09/05/17 17:01 09/05/17 17:01 PT 12.7 SECONDS (9.7-12.2) H 09/03/17 09:19 INR 1.1 09/03/17 09:19 APTT 33 SECONDS (21-34) D 09/03/17 09:19 Attending/Attestation - Attestation I have personally seen and examined this patient.: Yes I have fully participated in the care of the patient.: Yes I have reviewed all pertinent clinical information, including history, physical exam and plan: Yes Notes (Text): Pt was seen and examined at bedside Agree with above note and assessment Pt with abdominal pain, Possible retained CBD stone Mild Abdominal tenderness NPO, IVF c.w current mx GI consult for ERCP Plan d/w pt in detail Risk and benefit explained in detail.
--- NOTE | 2017-08-31 08:44 | MRI ---
PROCEDURE: Magnetic Resonance Cholangiopancreatography HISTORY: 52 years old woman with abdominal pain status post cholecystectomy on 06/25. Evaluate for retained CBD stone COMPARISON: Comparison is made to the previous CT of the abdomen and pelvis dated 08/30/2017. TECHNIQUE: Multiplanar, multisequence MR images of the abdomen were obtained, including heavily T2 weighted MRCP images of the biliary system. Rotating maximum intensity projection images of the biliary system were generated. FINDINGS: MRCP: The common bile duct is mildly dilated likely due to prior cholecystectomy. . No evidence of choledocholithiasis. Mild intrahepatic biliary ductal dilatation. The cystic duct is mildly dilated. . LIVER: There are 2 adjacent thick enhancing wall oval-shaped lesion along the medial inferior border of the right liver lobe. The largest lesion measures 2.7 centimeter in the transverse diameter. This lesion demonstrate thick enhancing wall and hypo intense T1 and T2 central signal 1st. These lesions are new compared to the previous CT dated 03/27/2017 and noted in the previous CT dated 08/30/2017 as possible gout gallstones with surrounding inflammatory changes. Other etiology including neoplasm is less likely given the hypo intense T1 and T2 non enhancing central portion of these lesions. GALLBLADDER: Status post cholecystectomy SPLEEN: The spleen is normal in size. PANCREAS: Unremarkable. The main pancreatic duct is not dilated ADRENALS: Again seen is soft tissue mass at the right adrenal gland measures 3.4 centimeter in the AP diameter and 2.2 centimeter in the transverse diameter. This mass demonstrate signal drop in the out phase image compared to the inphase T1 images. The mass also seen in the prior CT dated 03/11/2015 without significant change and likely represent benign adenoma. The left adrenal gland is grossly unremarkable. KIDNEYS: The kidneys enhance symmetrically. Multiple cystic lesions are seen in both kidneys. The previously noted medullary calcification in the previous CT study are not clearly visualized in this exam. AORTA: No aneurysm. ASCITES: None. OTHER FINDINGS: None. IMPRESSION: There are 2 adjacent round/oval shaped lesions along the medial inferior border of the right liver lobe demonstrate thick enhancing wall and hypo intense T1 and T2 nonenhancing central corresponding to the lesions seen in the previous last CT. The possibility of retained gallstones surrounding with inflammatory changes again should be considered. The differential consideration includes foci of hematoma surrounding with inflammatory changes versus less likely neoplasm/ mesenteric implants. Further assessment by ultrasound and if indicated CT guided biopsy may be obtained. No evidence of choledocholithiasis. Mildly dilated CBD likely due to prior cholecystectomy. Preliminary report was submitted by [facility].
[2017-08-31] MEDS: Enoxaparin 40 mg Syringe SC SCH (09:55)
[2017-08-31 11:33] LABS: BASO % 0.2 % (0.0-2.0); EOS % 0.4 % (0.0-4.0); LYMPH # 0.7 K/uL (1.0-4.3); LYMPH % 6.6 % (20.0-40.0); MEAN CELL VOLUME 88.7 fL (81.0-99.0); MEAN CORPUSCULAR HEMOGLOBIN 31.1 pg (27.0-31.0); MEAN CORPUSCULAR HGB CONC 35.1 g/dL (33.0-37.0); MEAN PLATELET VOLUME 6.9 fL (7.2-11.7); MONO # 0.5 K/uL (0.0-0.8); MONO % 5.3 % (0.0-10.0); RED CELL DISTRIBUTION WIDTH 14.2 % (11.5-14.5); WHITE BLOOD COUNT 10.2 K/uL (4.8-10.8)
[2017-08-31 11:34] LABS: PLATELET COUNT 261 K/uL (130-400)
[2017-08-31 11:54] LABS: INR 1.3
[2017-08-31 11:58] LABS: ALB/GLOB RATIO 0.9 (1.0-2.1); ALKALINE PHOSPHATASE 102 U/L (38-126); ALT/SGPT 97 U/L (9-52); AST/SGOT 48 U/L (14-36); BILIRUBIN,TOTAL 3.6 mg/dL (0.2-1.3); BLOOD UREA NITROGEN 20 mg/dL (7-17); CALCIUM 7.6 mg/dl (8.6-10.4); CARBON DIOXIDE 22 mmol/L (22-30); CHLORIDE 103 mmol/L (98-107); GFR AFRICAN-AMERICAN > 60; GLUCOSE,RANDOM 90 mg/dL (65-105); POTASSIUM 3.5 mmol/L (3.6-5.2); SODIUM 135 mmol/L (132-148); TOTAL PROTEIN 7.1 g/dL (6.3-8.3)
[2017-08-31 12:22] LABS: NEUTROPHIL 87 % (50-75); REACTIVE LYMPHOCYTES 1 % (0-0); TOTAL CELLS COUNTED 100
--- NOTE | 2017-08-31 13:09 | PN ---
DATE: LOCATION: [facility], bed A. SUBJECTIVE: This is a 52-year-old female seen and examined in rounds. Afebrile with mild jaundice, with complaint of abdominal pain, appeared to be awake and responsive. No reported active bleeding. The entire chart is reviewed including, but not limited to the most recent lab and radiology study results, current and the previous medication list, current and the previous medical events. The patient is still having leukocytosis. As per ER staff, their report was normal H and H with low potassium, low CO2 content with increased BUN, but increased blood glucose level with abnormal liver function test. MRCP report is seen and the patient may need CAT scan-guided biopsy of the reported lesion on MRCP. No evidence of choledocholithiasis. PHYSICAL EXAMINATION: GENERAL: A 52 years old female. VITAL SIGNS: Afebrile with pulse of 86, respiratory rate 20 to 22 with blood pressure 120/78. HEENT: Showed pale, dry oral mucoid membrane, nonicteric sclerae. LUNGS: Few scattered crepitation. Decreased air entry at bases. HEART: Positive S1 and S2 with increased rate. ABDOMEN: Soft with slight generalized tenderness. No mass or organomegaly. No rebound tenderness or guarding. EXTREMITIES: Without significant edema, clubbing, or cyanosis. NEUROLOGIC: No new reported neurological deficits, sensory or motor. IMPRESSION: 1. Abnormal radiology study results of the biliary tree and surrounding hepatic tissue with possible mass lesion versus hematoma. 2. Abnormal liver function test, probably secondary to above. No evidence of obstructive jaundice. 3. Leukocytosis secondary to above. 4. Known history of mainly status post cholecystectomy and hypertension. SUGGESTIONS: 1. Continue current management. 2. Correct any underlying electrolyte imbalance. 3. CAT scan-guided needle biopsy of the reported hepatic, perihepatic lesion. 4. Cancer markers including alpha-fetoprotein and CA19-9. 5. Hepatitis profile. 6. Reglan IV. 7. Further evaluation and recommendation to follow. Katie Lopez MD
--- NOTE | 2017-08-31 23:42 | CP.PCM.PN ---
Subjective - Date & Time of Evaluation Date of Evaluation: 08/31/17 Time of Evaluation: 18:00 - Subjective Subjective: Pt seen and examined Objective - Vital Signs/Intake and Output Vital Signs (last 24 hours): Temp Pulse Resp BP Pulse Ox 98.8 F 107 H 20 110/69 98 08/31/17 16:00 08/31/17 16:00 08/31/17 16:00 08/31/17 16:00 08/31/17 16:00 Intake and Output: 08/31/17 09/01/17 18:59 06:59 Intake Total 1650 1100 Output Total 500 Balance 1650 600 - Medications Medications: Current Medications Enoxaparin Sodium (Lovenox) 40 mg SC DAILY [facility] Last Admin: 08/31/17 09:55 Dose: Not Given Famotidine (Pepcid) 20 mg IVP Q12 [facility] Last Admin: 08/31/17 21:13 Dose: 20 mg Potassium Chloride/Dextrose/Sod Cl (Potassium Chl 20 Meq In D5-1/2ns) 1,000 mls @ 100 mls/hr IV .Q10H [facility] Last Admin: 08/31/17 21:42 Dose: 100 mls/hr Cefepime HCl (Maxipime Iv 1 Gm Premix) 1 gm in 50 mls @ 100 mls/hr IVPB Q12H [facility] Last Admin: 08/31/17 11:15 Dose: Not Given Morphine Sulfate (Morphine) 2 mg IVP Q4 PRN PRN Reason: Pain, moderate (4-7) Last Admin: 08/31/17 20:46 Dose: 2 mg Ondansetron HCl (Zofran Inj) 4 mg IVP Q8 PRN PRN Reason: Nausea/Vomiting - Labs Labs: 08/31/17 11:25 08/31/17 11:25 PT 14.4 SECONDS (9.7-12.2) H 08/31/17 11:25 INR 1.3 08/31/17 11:25 APTT 28 SECONDS (21-34) 08/31/17 11:25
[2017-09-01] MEDS: Cefepime IV 1 gm in Dextrose 1 GM/50 ML BAG IVPB SCH ×2 (00:02→11:39)
[2017-09-01] MEDS: Potassium Ch 20mEq in D5-1/2NS 1,000 ML IV SCH ×2 (08:52→21:25)
[2017-09-01] MEDS: Enoxaparin 40 mg Syringe SC SCH (09:00)
--- NOTE | 2017-09-01 10:45 | CP.PCM.PN ---
<Juanjose Campos - Last Filed: 09/01/17 12:10> Subjective - Date & Time of Evaluation Date of Evaluation: 09/01/17 Time of Evaluation: 06:55 - Subjective Subjective: General Surgery Note for Dr. Wynn Patient seen and examined at bedside. No acute event overnight. Abdominal pain present. NPO. Denies BM and flatus. No nausea/vomiting. Objective - Vital Signs/Intake and Output Vital Signs (last 24 hours): Temp Pulse Resp BP Pulse Ox 99.6 F 103 H 20 103/61 97 09/01/17 01:00 09/01/17 00:00 09/01/17 00:00 09/01/17 00:00 09/01/17 00:00 Intake and Output: 09/01/17 09/01/17 06:59 18:59 Intake Total 1900 Output Total 500 Balance 1400 - Medications Medications: Current Medications Enoxaparin Sodium (Lovenox) 40 mg SC DAILY [facility] Last Admin: 09/01/17 09:00 Dose: 40 mg Famotidine (Pepcid) 20 mg IVP Q12 [facility] Last Admin: 09/01/17 09:00 Dose: 20 mg Potassium Chloride/Dextrose/Sod Cl (Potassium Chl 20 Meq In D5-1/2ns) 1,000 mls @ 100 mls/hr IV .Q10H [facility] Last Admin: 09/01/17 08:52 Dose: 100 mls/hr Cefepime HCl (Maxipime Iv 1 Gm Premix) 1 gm in 50 mls @ 100 mls/hr IVPB Q12H [facility] Last Admin: 09/01/17 00:02 Dose: 100 mls/hr Morphine Sulfate (Morphine) 2 mg IVP Q4 PRN PRN Reason: Pain, moderate (4-7) Last Admin: 09/01/17 08:50 Dose: 2 mg Ondansetron HCl (Zofran Inj) 4 mg IVP Q8 PRN PRN Reason: Nausea/Vomiting - Labs Labs: 08/31/17 11:25 08/31/17 11:25 PT 14.4 SECONDS (9.7-12.2) H 08/31/17 11:25 INR 1.3 08/31/17 11:25 APTT 28 SECONDS (21-34) 08/31/17 11:25 - Constitutional Appears: No Acute Distress - Head Exam Head Exam: ATRAUMATIC, NORMOCEPHALIC - Eye Exam Eye Exam: Normal appearance - ENT Exam ENT Exam: Mucous Membranes Moist - Respiratory Exam Respiratory Exam: NORMAL BREATHING PATTERN - Cardiovascular Exam Cardiovascular Exam: REGULAR RHYTHM - GI/Abdominal Exam GI & Abdominal Exam: Soft, Tenderness (RUQ/Epigastric). absent: Distended, Firm , Guarding, Rigid, Rebound - Extremities Exam Extremities Exam: Normal Capillary Refill. absent: Calf Tenderness - Back Exam Back Exam: absent: CVA tenderness (L), CVA tenderness (R) - Neurological Exam Neurological Exam: Alert, Awake, CN II-XII Intact, Oriented x3 - Psychiatric Exam Psychiatric exam: Anxious - Skin Skin Exam: Dry, Intact, Normal Color, Warm Assessment and Plan - Assessment and Plan (Free Text) Plan: 52F s/p laparoscopic cholecystectomy with abdominal pain, possibly secondary to retained CBD stone -Recommend EUS/ERCP -f/u GI recommendations -No surgical intervention at this time. Surgery signing off. Reconsult as needed. Thank you. -Discussed with Dr. Rachel Campos PGY1 <Kody Wynn B - Last Filed: 09/08/17 22:36> Objective - Vital Signs/Intake and Output Vital Signs (last 24 hours): Temp Pulse Resp BP Pulse Ox 97.8 F 97 H 20 116/69 97 09/06/17 08:00 09/06/17 08:00 09/06/17 08:00 09/06/17 08:00 09/06/17 08:00 - Labs Labs: 09/05/17 17:01 09/05/17 17:01 PT 12.7 SECONDS (9.7-12.2) H 09/03/17 09:19 INR 1.1 09/03/17 09:19 APTT 33 SECONDS (21-34) D 09/03/17 09:19 Attending/Attestation - Attestation I have personally seen and examined this patient.: Yes I have fully participated in the care of the patient.: Yes I have reviewed all pertinent clinical information, including history, physical exam and plan: Yes Notes (Text): Pt was seen and examined at bedside Agree with above note and assessment Pt with abdominal pain, Possible retained CBD stone LFT is improving Lipase is trending down Pt is clinically improving No surgical intervention required at present. Plan d/w pt in detail Risk and benefit explained in detail.
--- NOTE | 2017-09-01 14:30 | PN ---
DATE: LOCATION: [facility], bed A. SUBJECTIVE: This is a 52 years old female seen and examined early today with intermittent period of abdominal pain, slightly less than before, but no reported active bleeding. No nausea or vomiting, but mild dyspepsia, appeared to be jaundiced slightly. The entire chart is reviewed including but not limited to the most recent labs and radiology study results, current and previous medication list, current and previous medical events, and today's lab is still pending; however, the patient reported to have yesterday low hemoglobin of 9.5, with hematocrit 27.0, with normal white blood cells and normal platelet count. There was mildly elevated PT to 14.4, with gradually improving AST and ALT, but total bilirubin elevated to 3.6, with low albumin, and elevated CA19-9 to 105, raising the possible question of possible pancreatic CA. Hepatitis profile was reported to be negative. PHYSICAL EXAMINATION: GENERAL: A 52 years old female. VITAL SIGNS: With low-grade temperature of 99.6 and heart rate of 100, respiratory rate 20 to 22, blood pressure 108/66. HEENT: Showed pale, dry oral mucous membrane, with bilateral mildly icteric sclerae. LUNGS: Few scattered crepitation. Breathing sounds are present. HEART: Positive S1 and S2. ABDOMEN: Soft with generalized tenderness but mainly in the right upper quadrant area. No mass or organomegaly. No rebound tenderness or guarding. EXTREMITIES: Without edema, clubbing, or cyanosis. NEUROLOGIC: No reported new neurological deficits, sensory or motor. IMPRESSION: 1. Abnormal magnetic resonance cholangiopancreatography with possible perihepatic infectious process including retained gallbladder stone out of the biliary tree versus old hematoma. 2. Abnormal liver function test, secondary to above, improving gradually. 3. Elevated CA19-9 raising possible question of early stage of pancreatic cancer. 4. Jaundice secondary to hepatocellular injury. No clear evidence of obstructive jaundice. 5. Known history of status post cholecystectomy. 6. Hypertension by history. SUGGESTION: 1. Continue current management. 2. Blood culture x2. 3. If the patient's symptoms persist, then surgical consultation to be kept in mind. Katie Lopez MD
--- NOTE | 2017-09-01 16:16 | CP.PCM.PN ---
Subjective - Date & Time of Evaluation Date of Evaluation: 09/01/17 Time of Evaluation: 11:00 - Subjective Subjective: Pt seen today , c/o abdominal pain, tolerating liquid diet , denies any N/V a febrile Objective - Vital Signs/Intake and Output Vital Signs (last 24 hours): Temp Pulse Resp BP Pulse Ox 99.6 F 103 H 20 103/61 97 09/01/17 01:00 09/01/17 00:00 09/01/17 00:00 09/01/17 00:00 09/01/17 00:00 Intake and Output: 09/01/17 09/01/17 06:59 18:59 Intake Total 1900 Output Total 500 Balance 1400 - Medications Medications: Current Medications Acetaminophen (Tylenol 325mg Tab) 650 mg PO Q6 PRN PRN Reason: Headache Last Admin: 09/01/17 15:20 Dose: 650 mg Enoxaparin Sodium (Lovenox) 40 mg SC DAILY [facility] Last Admin: 09/01/17 09:00 Dose: 40 mg Famotidine (Pepcid) 20 mg IVP Q12 [facility] Last Admin: 09/01/17 09:00 Dose: 20 mg Potassium Chloride/Dextrose/Sod Cl (Potassium Chl 20 Meq In D5-1/2ns) 1,000 mls @ 100 mls/hr IV .Q10H [facility] Last Admin: 09/01/17 08:52 Dose: 100 mls/hr Cefepime HCl (Maxipime Iv 1 Gm Premix) 1 gm in 50 mls @ 100 mls/hr IVPB Q12H [facility] Last Admin: 09/01/17 11:39 Dose: 100 mls/hr Morphine Sulfate (Morphine) 2 mg IVP Q4 PRN PRN Reason: Pain, moderate (4-7) Last Admin: 09/01/17 08:50 Dose: 2 mg Ondansetron HCl (Zofran Inj) 4 mg IVP Q8 PRN PRN Reason: Nausea/Vomiting - Labs Labs: 08/31/17 11:25 08/31/17 11:25 PT 14.4 SECONDS (9.7-12.2) H 08/31/17 11:25 INR 1.3 08/31/17 11:25 APTT 28 SECONDS (21-34) 08/31/17 11:25 Assessment and Plan - Assessment and Plan (Free Text) Assessment: A/P 52F s/p laparoscopic cholecystectomy in jun 2017 admitted with with abdominal pain, N/V dr. Ramos on consult recommend EUS/ ercp and f/u GI recommendations and No surgical intervention at this time. Nacho Chi on case , pt may need [facility] care , D/W Dr. Schwartz as per Dr. Griffith recommendations , Dr. Schwartz will contact Nacho for more details and f/u The above plan discussed with Dr. oscar and agrees with plan
[2017-09-01 19:57] LABS: BASO % 0.5 % (0.0-2.0); EOS # 0.1 K/uL (0.0-0.7); HEMATOCRIT 28.6 % (34.0-47.0); LYMPH # 1.1 K/uL (1.0-4.3); MEAN CELL VOLUME 88.8 fL (81.0-99.0); MEAN CORPUSCULAR HEMOGLOBIN 29.2 pg (27.0-31.0); MEAN CORPUSCULAR HGB CONC 32.9 g/dL (33.0-37.0); MONO # 0.6 K/uL (0.0-0.8); MONO % 8.7 % (0.0-10.0); RED CELL DISTRIBUTION WIDTH 13.9 % (11.5-14.5); WHITE BLOOD COUNT 6.9 K/uL (4.8-10.8)
[2017-09-01 20:16] LABS: ALB/GLOB RATIO 0.9 (1.0-2.1); ALKALINE PHOSPHATASE 102 U/L (38-126); ALT/SGPT 73 U/L (9-52); AST/SGOT 20 U/L (14-36); BILIRUBIN,TOTAL 1.8 mg/dL (0.2-1.3); BLOOD UREA NITROGEN 12 mg/dL (7-17); CALCIUM 7.9 mg/dl (8.6-10.4); CARBON DIOXIDE 21 mmol/L (22-30); CHLORIDE 101 mmol/L (98-107); GFR AFRICAN-AMERICAN > 60; GLUCOSE,RANDOM 91 mg/dL (65-105); POTASSIUM 4.1 mmol/L (3.6-5.2); SODIUM 131 mmol/L (132-148); TOTAL PROTEIN 7.5 g/dL (6.3-8.3)
--- NOTE | 2017-09-01 23:08 | CP.PCM.PN ---
Subjective - Date & Time of Evaluation Date of Evaluation: 09/01/17 Time of Evaluation: 15:00 - Subjective Subjective: Pt seen and examined today, continues to c/o abdominal pain, tolerating liquid diet , denies any N/V a febrile , pt has nausea, no vomitting. pt has stones in CBD symptomatic, pt is for ERCP and endoscopic U/s Objective - Vital Signs/Intake and Output Vital Signs (last 24 hours): Temp Pulse Resp BP Pulse Ox 98.2 F 97 H 20 120/83 96 09/01/17 17:05 09/01/17 17:05 09/01/17 17:05 09/01/17 17:05 09/01/17 17:05 Intake and Output: 09/01/17 09/02/17 18:59 06:59 Intake Total 750 Balance 750 - Medications Medications: Current Medications Acetaminophen (Tylenol 325mg Tab) 650 mg PO Q6 PRN PRN Reason: Headache Last Admin: 09/01/17 15:20 Dose: 650 mg Enoxaparin Sodium (Lovenox) 40 mg SC DAILY [facility] Last Admin: 09/01/17 09:00 Dose: 40 mg Famotidine (Pepcid) 20 mg IVP Q12 [facility] Last Admin: 09/01/17 21:22 Dose: 20 mg Cefepime HCl (Maxipime Iv 1 Gm Premix) 1 gm in 50 mls @ 100 mls/hr IVPB Q12H [facility] Last Admin: 09/01/17 11:39 Dose: 100 mls/hr Morphine Sulfate (Morphine) 2 mg IVP Q4 PRN PRN Reason: Pain, moderate (4-7) Last Admin: 09/01/17 21:29 Dose: 2 mg Ondansetron HCl (Zofran Inj) 4 mg IVP Q8 PRN PRN Reason: Nausea/Vomiting - Labs Labs: 09/01/17 19:52 09/01/17 19:52 PT 14.4 SECONDS (9.7-12.2) H 08/31/17 11:25 INR 1.3 08/31/17 11:25 APTT 28 SECONDS (21-34) 08/31/17 11:25 - Constitutional Appears: No Acute Distress - Head Exam Head Exam: ATRAUMATIC, NORMAL INSPECTION, NORMOCEPHALIC - Respiratory Exam Respiratory Exam: Clear to Ausculation Bilateral, NORMAL BREATHING PATTERN - Cardiovascular Exam Cardiovascular Exam: REGULAR RHYTHM, +S1, +S2. absent: Murmur - GI/Abdominal Exam GI & Abdominal Exam: Tenderness Additional comments: LUQ pain Assessment and Plan (1) Common bile duct calculus Status: Acute (2) Liver disorder due to infection Status: Acute (3) Abdominal pain Status: Acute (4) Cholelithiasis Status: Acute
[2017-09-02] MEDS: Cefepime IV 1 gm in Dextrose 1 GM/50 ML BAG IVPB SCH ×3 (00:23→23:54)
--- NOTE | 2017-09-02 04:22 | CP.PCM.PN ---
Subjective - Date & Time of Evaluation Date of Evaluation: 09/02/17 Time of Evaluation: 10:00 - Subjective Subjective: Pt seen and examined at bedside, pt was seen by hepatobilliary , he discussed the possible interventions .Pt is having continued pain in RUQ. patient becoming frustrated that nothing is being done to help her pain. Denies F/C CP/SOB N/V/D Objective - Vital Signs/Intake and Output Vital Signs (last 24 hours): Temp Pulse Resp BP Pulse Ox 98.5 F 69 16 113/77 99 09/02/17 00:19 09/02/17 00:19 09/02/17 00:19 09/02/17 00:19 09/02/17 00:19 Intake and Output: 09/01/17 09/02/17 18:59 06:59 Intake Total 750 Balance 750 - Medications Medications: Current Medications Acetaminophen (Tylenol 325mg Tab) 650 mg PO Q6 PRN PRN Reason: Headache Last Admin: 09/02/17 00:38 Dose: 650 mg Enoxaparin Sodium (Lovenox) 40 mg SC DAILY [facility] Last Admin: 09/01/17 09:00 Dose: 40 mg Famotidine (Pepcid) 20 mg IVP Q12 [facility] Last Admin: 09/01/17 21:22 Dose: 20 mg Cefepime HCl (Maxipime Iv 1 Gm Premix) 1 gm in 50 mls @ 100 mls/hr IVPB Q12H [facility] Last Admin: 09/02/17 00:23 Dose: 100 mls/hr Morphine Sulfate (Morphine) 2 mg IVP Q4 PRN PRN Reason: Pain, moderate (4-7) Last Admin: 09/01/17 21:29 Dose: 2 mg Ondansetron HCl (Zofran Inj) 4 mg IVP Q8 PRN PRN Reason: Nausea/Vomiting - Labs Labs: 09/01/17 19:52 09/01/17 19:52 PT 14.4 SECONDS (9.7-12.2) H 08/31/17 11:25 INR 1.3 08/31/17 11:25 APTT 28 SECONDS (21-34) 08/31/17 11:25 - Constitutional Appears: No Acute Distress - Head Exam Head Exam: ATRAUMATIC, NORMAL INSPECTION, NORMOCEPHALIC - Eye Exam Eye Exam: EOMI, Normal appearance, PERRL Pupil Exam: NORMAL ACCOMODATION, PERRL - Respiratory Exam Respiratory Exam: Clear to Ausculation Bilateral, NORMAL BREATHING PATTERN - Cardiovascular Exam Cardiovascular Exam: REGULAR RHYTHM, +S1, +S2. absent: Murmur - GI/Abdominal Exam GI & Abdominal Exam: Tenderness - Rectal Exam Rectal Exam: Deferred Assessment and Plan (1) Elevated LFTs Status: Acute (2) Gastritis Status: Acute (3) Abdominal pain Status: Acute (4) Common bile duct calculus Assessment & Plan: dropped stone in gallbladder Status: Acute (5) Choledochitis Status: Acute
--- NOTE | 2017-09-02 04:23 | CON ---
DATE: 08/30/[address] Dr[address]. Darvin Ford. I was called for a GI consultation by the admitting MD. The patient is seen and fully examined for GI consultation on 08/30/2017, as requested by the admitting medical staff. The entire chart is reviewed including but not limited to the most recent lab and radiology study results, current and the previous medication list, current and the previous medical events, allergies to medication list as well as all the available records. HISTORY OF PRESENT ILLNESS: This is a 52-year-old female who was admitted to the hospital through the emergency room due to diffuse abdominal pain, episodes of nausea and vomiting on and off with mild chills and loss of appetite. No reported fever, chest pain, significant shortness of breath, or significant change of bowel movements, having recently but known jaundice reported. PAST MEDICAL HISTORY: Including, but not limited to: 1. Hypertension. 2. Cholelithiasis, cholecystitis with status post cholecystectomy, done 2 months ago in [facility] Dr. Suresh Castillo 3. Peptic ulcer disease. FAMILY HISTORY: Unknown. SOCIAL HISTORY: No known history of cigarette smoking or alcohol intake. CURRENT MEDICATIONS: Medication list was reviewed. ALLERGY TO MEDICATION: UNCLEAR. LABORATORY DATA: After being admitted to the hospital, the patient was found to have leukocytosis of 16.0 with low hematocrit of 33.5 with increased blood glucose level to 173, increased BUN of 26 but normal creatinine with low potassium 3.5, low CO2 content of 20 indicative of metabolic acidosis. Radiology study results indicative of right upper quadrant soft tissue lesions, largest of which is up to 2.5 cm located at the medial border of the inferior right hepatic lobe containing radio-opacity within its center that is most likely represented dropped gallstone with surrounding inflammatory changes versus questionable metastatic deposits and/or possible hematoma with possible hypoechoic lesion noted at the level of the pancreatic head and body measured about 2.5 x 1.8 x 2.6 cm with possible neoblastic lesion or adenopathy with status post cholecystectomy. PHYSICAL EXAMINATION: GENERAL: A 52-year-old female, awake, alert, oriented, complaining of severe abdominal pain, diffuse in nature. VITAL SIGNS: Low-grade temperature and pulse of 100, respiratory rate 20-22, and blood pressure 110/58. HEENT: Showed pale, dry oral mucous membrane. Slightly icteric sclerae bilaterally. The patient had abnormal liver function test. LYMPH NODES: No lymphadenitis or lymphadenopathy. LUNGS: Few scattered crepitation with decreased air entry at the bases bilaterally. HEART: Positive S1 and S2 with increased rate. ABDOMEN: Soft with diffuse generalized tenderness. No mass or organomegaly. No rebound tenderness or guarding. EXTREMITIES: Without significant clubbing, cyanosis, or edema. NEUROLOGIC: No reported new neurological deficits, sensory or motor. Peripheral pulses are present bilaterally. IMPRESSION: 1. Status post cholecystectomy with possible postsurgical hematoma versus probe of gallbladder outside the biliary tree with abscess-like formation. 2. Abnormal CAT scan of the abdomen and pelvis, the possibility of hepatic head lesion was raised. However, that could be also secondary to acute pancreatitis secondary to an infectious process. 3. Known history of status post cholecystectomy, hypertension, 4. Electrolyte imbalance with metabolic acidosis associated with elevated blood glucose level of unclear etiology. SUGGESTIONS: 1. Agree with your plan. 2. MRCP. 3. Hepatitis profile. 4. Hepatic surgical consultation. 5. IV antibiotics 6. Proton pump inhibitors. 7. At this point, I doubt that the patient will need ERCP; however, if her symptoms persist with persistent elevation of total bilirubin and the rest of the liver function test, then ERCP to be kept in mind, both MRCP. Again, the patient will need hepatic surgical consultation. 8. We will discuss at length with Dr. Darvin Ford as well as Dr. Suresh Castillo for more details about recently done cholecystectomy. 9. Cancer markers including the alpha-fetoprotein, CA19-9. Thank you for letting me participate in your patient's case management. Katie Lopez MD cc: Katie Lopez MD
--- NOTE | 2017-09-02 09:19 | PN ---
DATE: LOCATION: [facility], bed A. SUBJECTIVE: This is a 52 years old female, seen and examined at rounds, appeared to be awake, alert, oriented. Still complaining of abdominal pain at the midepigastric and right upper quadrant area. No nausea or vomiting. Most recent lab results from yesterday showed hemoglobin of 9.4 with hematocrit 28.6, but normal platelet count with low sodium 131, CO2 content 21, low with low calcium 7.8, but dropped total bilirubin to 1.8 with improved AST to 20, ALT to 73, mildly elevated. Cancer markers showed elevated CA19-9 to 105. Again, the most recent radiology study results including MRCP is seen. Official report is reevaluated with no evidence of common bile duct stone, but the possibility of retained gallstone surrounding with inflammatory changes again should be considered with possible hematoma with inflammatory changes and less likely neoplastic mesenteric implants. It has to be mentioned that this case discussed at length with Dr. Ford and subsequently I called Dr. Schwartz, the hepatic surgical physician assistant from [facility] in [place], [place], who offered to come to see the patient today. I instructed the nursing practitioner yesterday to send all the information to Dr. Schwartz for full evaluation and recommendation at the patient when need hepatic, liver transplant surgical consultation for full evaluation. It has to be mentioned that the patient has no bleeding. PHYSICAL EXAMINATION: GENERAL: A 52 years old female. VITAL SIGNS: Afebrile with pulse of 72, respiratory rate 18 to 20, blood pressure 118/72. HEENT: Showed pale dry oral mucous membrane. Slight icteric sclerae. LUNGS: Clear breathing sounds are present bilaterally. ABDOMEN: Soft. Bowel sounds are present with tenderness in the right upper quadrant and midepigastric area. HEART: Positive S1 and S2. EXTREMITIES: Without edema, clubbing or cyanosis. NEUROLOGIC: No reported new neurological deficits, sensory or motor. IMPRESSION: 1. Abnormal liver function tests, believed to be again secondary to dropped off gallbladder stone during her recent cholecystectomy with inflammatory changes. It has to be make clear that the patient has no evidence of obstructive jaundice by Radiology study results. No dilated common bile duct or biliary stone. 2. Abnormal liver function tests secondary to above. 3. Status post cholecystectomy. 4. Re-exacerbation of peptic ulcer disease. 5. Anemia, most likely secondary to chronic disease. No evidence of active bleeding. 6. Known history of hypertension. SUGGESTION: 1. Continue current management. 2. We will follow Dr. Schwartz's recommendation upon revaluating the patient today. Katie Lopez MD
[2017-09-02] MEDS: Enoxaparin 40 mg Syringe SC SCH (09:34)
--- NOTE | 2017-09-02 11:11 | CP.PCM.PN ---
<Chilo Gorman - Last Filed: 09/02/17 11:08> Subjective - Date & Time of Evaluation Date of Evaluation: 09/02/17 Time of Evaluation: 07:35 - Subjective Subjective: General Surgery- Dr. Wynn Pt S&E at bedside this AM. NAEO. having continued pain in RUQ. patient becoming frustrated that nothing is being done to help her pain. Denies F/C CP/SOB N/V/D Objective - Vital Signs/Intake and Output Vital Signs (last 24 hours): Temp Pulse Resp BP Pulse Ox 97.6 F 87 20 121/79 99 09/02/17 08:00 09/02/17 08:00 09/02/17 08:00 09/02/17 08:00 09/02/17 08:00 Intake and Output: 09/02/17 09/02/17 06:59 18:59 Intake Total 920 Balance 920 - Medications Medications: Current Medications Acetaminophen (Tylenol 325mg Tab) 650 mg PO Q6 PRN PRN Reason: Headache Last Admin: 09/02/17 10:43 Dose: 650 mg Enoxaparin Sodium (Lovenox) 40 mg SC DAILY [facility] Last Admin: 09/02/17 09:34 Dose: Not Given Famotidine (Pepcid) 20 mg IVP Q12 [facility] Last Admin: 09/02/17 09:29 Dose: 20 mg Cefepime HCl (Maxipime Iv 1 Gm Premix) 1 gm in 50 mls @ 100 mls/hr IVPB Q12H [facility] Last Admin: 09/02/17 00:23 Dose: 100 mls/hr Morphine Sulfate (Morphine) 2 mg IVP Q4 PRN PRN Reason: Pain, moderate (4-7) Last Admin: 09/02/17 09:37 Dose: 2 mg Ondansetron HCl (Zofran Inj) 4 mg IVP Q8 PRN PRN Reason: Nausea/Vomiting - Labs Labs: 09/01/17 19:52 09/01/17 19:52 PT 14.4 SECONDS (9.7-12.2) H 08/31/17 11:25 INR 1.3 08/31/17 11:25 APTT 28 SECONDS (21-34) 08/31/17 11:25 - Constitutional Appears: Non-toxic, No Acute Distress - Head Exam Head Exam: ATRAUMATIC - Eye Exam Eye Exam: EOMI. absent: Scleral icterus - ENT Exam ENT Exam: Mucous Membranes Moist - Respiratory Exam Respiratory Exam: NORMAL BREATHING PATTERN. absent: Accessory Muscle Use, Respiratory Distress - Cardiovascular Exam Cardiovascular Exam: +S1, +S2. absent: Bradycardia, Tachycardia - GI/Abdominal Exam GI & Abdominal Exam: Soft, Tenderness. absent: Distended, Firm, Guarding Additional comments: RUQ pain - Extremities Exam Extremities Exam: Calf Tenderness. absent: Normal Inspection - Neurological Exam Neurological Exam: Alert, Awake, Oriented x3 - Skin Skin Exam: Dry, Warm Assessment and Plan - Assessment and Plan (Free Text) Assessment: 52F s/p cholecystectomy possible CBD stones Plan: - GI recs: possible ERCP and EUS - no acute surgical intervention at this time - will continue to follow - d/w Dr. Tianna Gorman PGY1 <Kody Wynn - Last Filed: 09/08/17 22:39> Objective - Vital Signs/Intake and Output Vital Signs (last 24 hours): Temp Pulse Resp BP Pulse Ox 97.8 F 97 H 20 116/69 97 09/06/17 08:00 09/06/17 08:00 09/06/17 08:00 09/06/17 08:00 09/06/17 08:00 - Labs Labs: 09/05/17 17:01 09/05/17 17:01 PT 12.7 SECONDS (9.7-12.2) H 09/03/17 09:19 INR 1.1 09/03/17 09:19 APTT 33 SECONDS (21-34) D 09/03/17 09:19 Attending/Attestation - Attestation I have personally seen and examined this patient.: Yes I have fully participated in the care of the patient.: Yes I have reviewed all pertinent clinical information, including history, physical exam and plan: Yes Notes (Text): Pt was seen and examined at bedside Agree with above note and assessment
[2017-09-03 09:25] LABS: BASO % 0.5 % (0.0-2.0); EOS # 0.2 K/uL (0.0-0.7); EOS % 2.5 % (0.0-4.0); HEMATOCRIT 29.5 % (34.0-47.0); LYMPH # 1.3 K/uL (1.0-4.3); LYMPH % 16.6 % (20.0-40.0); MEAN CELL VOLUME 87.8 fL (81.0-99.0); MEAN CORPUSCULAR HEMOGLOBIN 30.4 pg (27.0-31.0); MEAN CORPUSCULAR HGB CONC 34.6 g/dL (33.0-37.0); MEAN PLATELET VOLUME 6.8 fL (7.2-11.7); MONO # 0.6 K/uL (0.0-0.8); MONO % 8.2 % (0.0-10.0); NRBC % 0.1 % (0.0-2.0); RED CELL DISTRIBUTION WIDTH 13.9 % (11.5-14.5); WHITE BLOOD COUNT 7.7 K/uL (4.8-10.8)
[2017-09-03 09:32] LABS: INR 1.1
[2017-09-03 09:42] LABS: ALB/GLOB RATIO 0.8 (1.0-2.1); ALKALINE PHOSPHATASE 97 U/L (38-126); ALT/SGPT 45 U/L (9-52); AMYLASE 122 U/L (30-110); AST/SGOT 24 U/L (14-36); BILIRUBIN,TOTAL 1.1 mg/dL (0.2-1.3); BLOOD UREA NITROGEN 10 mg/dL (7-17); CALCIUM 8.7 mg/dl (8.6-10.4); CARBON DIOXIDE 21 mmol/L (22-30); CHLORIDE 103 mmol/L (98-107); GFR AFRICAN-AMERICAN > 60; GLUCOSE,RANDOM 113 mg/dL (65-105); POTASSIUM 4.2 mmol/L (3.6-5.2); SODIUM 134 mmol/L (132-148); TOTAL PROTEIN 7.6 g/dL (6.3-8.3)
[2017-09-03] MEDS: Enoxaparin 40 mg Syringe SC SCH (09:52)
[2017-09-03] MEDS: Cefepime IV 1 gm in Dextrose 1 GM/50 ML BAG IVPB SCH (12:18)
--- NOTE | 2017-09-03 13:20 | PN ---
DATE: LOCATION: [facility], bed A. SUBJECTIVE: This is a 52-year-old female, seen and examined in rounds with no pain during the night, but much less this morning, had been seen by Dr. Schwartz with primary recommendation of continuing Flagyl and vancomycin as well as current IV antibiotics for now. The entire chart is reviewed including but not limited to the most recent lab and radiology study results, current and the previous medication list, current and the previous medical events. As per the nursing staff, the patient had no pain early this morning. PHYSICAL EXAMINATION: VITAL SIGNS: Afebrile with pule of 88, respiratory rate 18 to 20, blood pressure of 120/68. HEENT: Showed pale, dry oral mucous membrane. Nonicteric sclerae. LUNGS: Few scattered crepitation. Decreased air entry at bases. HEART: Positive S1 and S2 with mild increased of rate. ABDOMEN: Soft with slight right upper quadrant and midepigastric tenderness. No mass or organomegaly. No rebound tenderness or guarding. EXTREMITIES: Without significant edema, clubbing, or cyanosis. NEUROLOGIC: No reported new neurological deficits, sensory or motor. IMPRESSION: 1. Status post cholecystectomy with possible of common bile duct out of the biliary tree forming an abscess like formation with inflammatory changes and possible hematoma. Please refer to the magnetic resonance cholangiopancreatography and the ultrasound findings. 2. No indication of common bile duct stone as mentioned in the surgical attending. 3. Abnormal CA19-9, the possibility of pancreatic cancer, although it is less likely, was raised. 4. Abnormal liver function tests secondary to above, not secondary to obstructive phenomena. The patient is clinically improving. 5. Anemia, most likely secondary to chronic disease. 6. Known history of hypertension, well controlled. SUGGESTIONS: 1. Agree with your plan. 2. Continue current management. 3. Repeat serum lipase and amylase level. 4. Advance diet and observe. If the patient did not tolerate, then upper endoscopy followed by possible ARCP to be kept in mind pending the outcome of the lab results and her clinical presentation. Otherwise close observation to follow. Katie Lopez MD
--- NOTE | 2017-09-03 16:10 | CARD ---
APPROVED REPORT EKG Measurement Heart [id number] <Conclusion> Sinus tachycardia Nonspecific T wave abnormality Abnormal ECG
[2017-09-03 19:41] LABS: RBC URINE 290 /hpf (0-3); URINE BACTERIA RARE (<OCC); URINE BILIRUBIN NEGATIVE (NEGATIVE); URINE BLOOD 3+ (NEGATIVE); URINE COLOR Yellow (YELLOW); URINE GLUCOSE (UA) NORMAL (Normal); URINE KETONE NEGATIVE (NEGATIVE); URINE LEUKOCYTE ESTERASE NEG Leu/uL (Negative); URINE PROTEIN 2+ mg/dL (NEGATIVE); URINE UROBILINOGEN NORMAL mg/dL (0.2-1.0); WBC URINE 18 /hpf (0-5)
--- NOTE | 2017-09-03 22:30 | CP.PCM.PN ---
Subjective - Date & Time of Evaluation Date of Evaluation: 09/03/17 Time of Evaluation: 13:00 - Subjective Subjective: Pt seen and examined at bedside today, pt is anxious and c/o pain not resolved yet Objective - Vital Signs/Intake and Output Vital Signs (last 24 hours): Temp Pulse Resp BP Pulse Ox 98.7 F 98 H 20 116/80 98 09/03/17 18:50 09/03/17 16:11 09/03/17 16:11 09/03/17 16:11 09/03/17 16:11 Intake and Output: 09/03/17 09/04/17 18:59 06:59 Intake Total 450 Balance 450 - Medications Medications: Current Medications Acetaminophen (Tylenol 325mg Tab) 650 mg PO Q6 PRN PRN Reason: Headache Last Admin: 09/03/17 18:50 Dose: 650 mg Enoxaparin Sodium (Lovenox) 40 mg SC DAILY [facility] Last Admin: 09/03/17 09:52 Dose: Not Given Famotidine (Pepcid) 20 mg IVP Q12 [facility] Last Admin: 09/03/17 21:12 Dose: 20 mg Cefepime HCl (Maxipime Iv 1 Gm Premix) 1 gm in 50 mls @ 100 mls/hr IVPB Q12H [facility] Last Admin: 09/03/17 12:18 Dose: 100 mls/hr Morphine Sulfate (Morphine) 2 mg IVP Q4 PRN PRN Reason: Pain, moderate (4-7) Last Admin: 09/03/17 21:39 Dose: 2 mg Ondansetron HCl (Zofran Inj) 4 mg IVP Q8 PRN PRN Reason: Nausea/Vomiting - Labs Labs: 09/03/17 09:19 09/03/17 09:19 PT 12.7 SECONDS (9.7-12.2) H 09/03/17 09:19 INR 1.1 09/03/17 09:19 APTT 33 SECONDS (21-34) D 09/03/17 09:19 Assessment and Plan (1) Elevated LFTs Status: Acute (2) Gastritis Status: Acute (3) Abdominal pain Status: Acute (4) Common bile duct calculus Status: Acute (5) Choledochitis Status: Acute
[2017-09-04] MEDS: Cefepime IV 1 gm in Dextrose 1 GM/50 ML BAG IVPB SCH ×2 (00:01→12:59)
[2017-09-04] MEDS: Enoxaparin 40 mg Syringe SC SCH (09:19)
--- NOTE | 2017-09-04 12:24 | CP.PCM.PN ---
<VinaymelanietoddGavino - Last Filed: 09/04/17 12:25> Subjective - Date & Time of Evaluation Date of Evaluation: 09/04/17 Time of Evaluation: 12:23 - Subjective Subjective: Surgery: Dr. Wynn Pt seen and examined. Resting comfortably in bed. No complaints of pain at this time. No N/V. No F/C. Objective - Vital Signs/Intake and Output Vital Signs (last 24 hours): Temp Pulse Resp BP Pulse Ox 97.5 F L 83 20 125/82 99 09/04/17 08:12 09/04/17 08:12 09/04/17 08:12 09/04/17 08:12 09/04/17 08:12 Intake and Output: 09/04/17 09/04/17 06:59 18:59 Intake Total 310 Balance 310 - Medications Medications: Current Medications Acetaminophen (Tylenol 325mg Tab) 650 mg PO Q6 PRN PRN Reason: Headache Last Admin: 09/04/17 09:17 Dose: 650 mg Enoxaparin Sodium (Lovenox) 40 mg SC DAILY [facility] Last Admin: 09/04/17 09:19 Dose: Not Given Famotidine (Pepcid) 20 mg IVP Q12 [facility] Last Admin: 09/04/17 09:17 Dose: 20 mg Cefepime HCl (Maxipime Iv 1 Gm Premix) 1 gm in 50 mls @ 100 mls/hr IVPB Q12H [facility] Last Admin: 09/04/17 00:01 Dose: 100 mls/hr Morphine Sulfate (Morphine) 2 mg IVP Q4 PRN PRN Reason: Pain, moderate (4-7) Last Admin: 09/04/17 01:36 Dose: 2 mg Ondansetron HCl (Zofran Inj) 4 mg IVP Q8 PRN PRN Reason: Nausea/Vomiting - Labs Labs: 09/03/17 09:19 09/03/17 09:19 PT 12.7 SECONDS (9.7-12.2) H 09/03/17 09:19 INR 1.1 09/03/17 09:19 APTT 33 SECONDS (21-34) D 09/03/17 09:19 - Constitutional Appears: Non-toxic, No Acute Distress - Head Exam Head Exam: ATRAUMATIC, NORMOCEPHALIC - Eye Exam Eye Exam: EOMI - ENT Exam ENT Exam: Mucous Membranes Moist - Neck Exam Neck Exam: Full ROM - Respiratory Exam Respiratory Exam: NORMAL BREATHING PATTERN. absent: Accessory Muscle Use, Respiratory Distress - GI/Abdominal Exam GI & Abdominal Exam: Soft. absent: Distended, Firm, Guarding, Rigid, Tenderness , Rebound - Extremities Exam Extremities Exam: Calf Tenderness, Pedal Edema - Neurological Exam Neurological Exam: Alert, Awake, Oriented x3 Assessment and Plan - Assessment and Plan (Free Text) Assessment: 52F s/p cholecystectomy w. RUQ pain, currently resolved -Imaging reviewed -F/U GI recommendations -no plans for surgery at this time -c/w current management -d/w attending Soren PGY3 <Kody Wynn - Last Filed: 09/08/17 22:42> Objective - Vital Signs/Intake and Output Vital Signs (last 24 hours): Temp Pulse Resp BP Pulse Ox 97.8 F 97 H 20 116/69 97 09/06/17 08:00 09/06/17 08:00 09/06/17 08:00 09/06/17 08:00 09/06/17 08:00 - Labs Labs: 09/05/17 17:01 09/05/17 17:01 PT 12.7 SECONDS (9.7-12.2) H 09/03/17 09:19 INR 1.1 09/03/17 09:19 APTT 33 SECONDS (21-34) D 09/03/17 09:19 Attending/Attestation - Attestation I have personally seen and examined this patient.: Yes I have fully participated in the care of the patient.: Yes I have reviewed all pertinent clinical information, including history, physical exam and plan: Yes Notes (Text): Pt was seen and examined at bedside Agree with above note and assessment EGD tomorrow possible EUS or ERCP c.w current mx We will f.u Plan d.w pt in detail. Risk and benefit explained in detail.
--- NOTE | 2017-09-04 15:37 | PN ---
LOCATION: Room #368, bed A. SUBJECTIVE: This is a 52-year-old female, seen and examined in rounds with much less abdominal pain but mild midepigastric pain on and off with slight right upper quadrant pain. In general, the patient is improving clinically. Most recent lab results showed hemoglobin of 10.2 and hematocrit 29.5. Today's lab is still pending. The patient's PT improved to 12.7 with normal liver function test. Amylase reported to be 122 but normal lipase of 283 as per yesterday. It has to be mentioned that this case was discussed at length with Dr. Schwartz, the hepatic surgical elastic knitter hand frame from [facility], suggesting medical treatment with IV antibiotic, agreeable to my assessment that is a dropped off stone rather than common bile duct stone. The patient is not jaundiced anymore. PHYSICAL EXAMINATION: GENERAL: A 52-year-old female. VITAL SIGNS: Afebrile with pulse of 84, respiratory rate 20 to 22, blood pressure 130/80. HEENT: Showed pale, dry oral mucoid membrane, anicteric sclerae. LUNGS: A few scattered crepitation. Decreased air entry at bases. HEART: Positive S1 and S2. ABDOMEN: Soft with midepigastric mild tenderness as well as slight right upper quadrant tenderness. No mass or organomegaly. EXTREMITIES: Without edema, clubbing, or cyanosis. NEUROLOGIC: No reported new neurological deficits, sensory or motor. IMPRESSION: 1. Re-exacerbation of peptic ulcer disease. The patient for upper endoscopy tomorrow to rule out possible gastric versus duodenal ulcer. 2. A dropped off gallbladder stone during previous cholecystectomy with inflammatory changes, the patient is improving significantly with normal liver function test, afebrile, with subsequent improvement of her leukocytosis. 3. Evidence of status post cholecystectomy by recent history. 4. Anemia. 5. Abnormal CA19-9 that could be also secondary to refractory inflammatory process versus less likely pancreatic carcinoma. SUGGESTIONS: 1. Agree with your plan. 2. The patient for upper endoscopy in the morning. 3. Continue aggressive IV antibiotics in the meantime with repeat blood culture as needed. 4. Case is to be discussed with Dr. Ford and the patient for EGD in the morning. Katie Lopez MD [facility] # [id number]
--- NOTE | 2017-09-04 23:41 | CP.PCM.PN ---
Subjective - Date & Time of Evaluation Date of Evaluation: 09/04/17 Time of Evaluation: 18:05 - Subjective Subjective: pt is seen and examined pt is for endoscopy tommorow. seen by GI, hepatobilliary surgeon Objective - Vital Signs/Intake and Output Vital Signs (last 24 hours): Temp Pulse Resp BP Pulse Ox 97.5 F L 83 20 125/82 99 09/04/17 08:12 09/04/17 08:12 09/04/17 08:12 09/04/17 08:12 09/04/17 08:12 Intake and Output: 09/04/17 09/05/17 18:59 06:59 Intake Total 550 300 Output Total 500 Balance 550 -200 - Medications Medications: Current Medications Acetaminophen (Tylenol 325mg Tab) 650 mg PO Q6 PRN PRN Reason: Headache Last Admin: 09/04/17 20:55 Dose: 650 mg Enoxaparin Sodium (Lovenox) 40 mg SC DAILY [facility] Last Admin: 09/04/17 09:19 Dose: Not Given Famotidine (Pepcid) 20 mg IVP Q12 [facility] Last Admin: 09/04/17 21:00 Dose: 20 mg Cefepime HCl (Maxipime Iv 1 Gm Premix) 1 gm in 50 mls @ 100 mls/hr IVPB Q12H [facility] Last Admin: 09/04/17 12:59 Dose: 100 mls/hr Morphine Sulfate (Morphine) 2 mg IVP Q4 PRN PRN Reason: Pain, moderate (4-7) Last Admin: 09/04/17 19:23 Dose: 2 mg Ondansetron HCl (Zofran Inj) 4 mg IVP Q8 PRN PRN Reason: Nausea/Vomiting - Labs Labs: 09/03/17 09:19 09/03/17 09:19 PT 12.7 SECONDS (9.7-12.2) H 09/03/17 09:19 INR 1.1 09/03/17 09:19 APTT 33 SECONDS (21-34) D 09/03/17 09:19 - Constitutional Appears: No Acute Distress - Eye Exam Eye Exam: EOMI, Normal appearance, PERRL Pupil Exam: NORMAL ACCOMODATION, PERRL - Respiratory Exam Respiratory Exam: Clear to Ausculation Bilateral, NORMAL BREATHING PATTERN - Cardiovascular Exam Cardiovascular Exam: REGULAR RHYTHM, +S1, +S2. absent: Murmur - GI/Abdominal Exam GI & Abdominal Exam: Soft, Normal Bowel Sounds. absent: Tenderness Assessment and Plan (1) Elevated LFTs Status: Acute (2) Gastritis Status: Acute (3) Abdominal pain Status: Acute (4) Common bile duct calculus Status: Acute (5) Choledochitis Status: Acute
[2017-09-05] MEDS: Cefepime IV 1 gm in Dextrose 1 GM/50 ML BAG IVPB SCH ×3 (00:35→13:56)
[2017-09-05] MEDS: Enoxaparin 40 mg Syringe SC SCH (09:17)
--- NOTE | 2017-09-05 10:16 | CP.PCM.PN ---
<Marie Ashton - Last Filed: 09/05/17 10:11> Subjective - Date & Time of Evaluation Date of Evaluation: 09/05/17 Time of Evaluation: 07:00 - Subjective Subjective: GENERAL SURGERY PROGRESS NOTE FOR DR. AGUILERA Patient seen and examined at bedside. She is NPO for endoscopy today with GI. She denies abdominal pain. She denies nausea or vomiting. Denies fever or chills. Objective - Vital Signs/Intake and Output Vital Signs (last 24 hours): Temp Pulse Resp BP Pulse Ox 98.7 F 75 20 119/73 99 09/05/17 08:00 09/05/17 08:00 09/05/17 08:00 09/05/17 08:00 09/05/17 08:00 Intake and Output: 09/05/17 09/05/17 06:59 18:59 Intake Total 350 Output Total 500 Balance -150 - Medications Medications: Current Medications Acetaminophen (Tylenol 325mg Tab) 650 mg PO Q6 PRN PRN Reason: Headache Last Admin: 09/04/17 20:55 Dose: 650 mg Enoxaparin Sodium (Lovenox) 40 mg SC DAILY [facility] Last Admin: 09/05/17 09:17 Dose: Not Given Famotidine (Pepcid) 20 mg IVP Q12 [facility] Last Admin: 09/05/17 09:45 Dose: 20 mg Morphine Sulfate (Morphine) 2 mg IVP Q4 PRN PRN Reason: Pain, moderate (4-7) Last Admin: 09/04/17 19:23 Dose: 2 mg Ondansetron HCl (Zofran Inj) 4 mg IVP Q8 PRN PRN Reason: Nausea/Vomiting - Labs Labs: 09/03/17 09:19 09/03/17 09:19 PT 12.7 SECONDS (9.7-12.2) H 09/03/17 09:19 INR 1.1 09/03/17 09:19 APTT 33 SECONDS (21-34) D 09/03/17 09:19 - Constitutional Appears: Non-toxic, No Acute Distress - Head Exam Head Exam: ATRAUMATIC, NORMAL INSPECTION - Respiratory Exam Respiratory Exam: NORMAL BREATHING PATTERN. absent: Respiratory Distress - Cardiovascular Exam Cardiovascular Exam: +S1, +S2 - GI/Abdominal Exam GI & Abdominal Exam: Rigid, Soft, Tenderness (mild tenderness in epigastric/RUQ) . absent: Distended, Firm, Guarding - Neurological Exam Neurological Exam: Alert, Awake, Oriented x3 - Skin Skin Exam: Dry, Warm Assessment and Plan - Assessment and Plan (Free Text) Assessment: 52yo F s/p cholecystectomy with RUQ pain, pt improving - Urine cx = E. Coli - Pt was seen by Dr. Schwartz hepatic surgery. Per GI note: recommended medical tx with IV Abx - Going for endoscopy with GI today, will FU findings - Will discuss plan with Dr. Tianna Ashton PGY-3 <Kody Aguilera - Last Filed: 09/10/17 22:46> Objective - Vital Signs/Intake and Output Vital Signs (last 24 hours): Temp Pulse Resp BP Pulse Ox 97.8 F 97 H 20 116/69 97 09/06/17 08:00 09/06/17 08:00 09/06/17 08:00 09/06/17 08:00 09/06/17 08:00 - Labs Labs: 09/05/17 17:01 09/05/17 17:01 PT 12.7 SECONDS (9.7-12.2) H 09/03/17 09:19 INR 1.1 09/03/17 09:19 APTT 33 SECONDS (21-34) D 09/03/17 09:19 Attending/Attestation - Attestation I have personally seen and examined this patient.: Yes I have fully participated in the care of the patient.: Yes I have reviewed all pertinent clinical information, including history, physical exam and plan: Yes Notes (Text): Pt was seen and examined at bedside Agree with above note and assessment Pt with possible retained CBD stone GI consult appreciated. c.w current mx Plan d.w pt in detail. Risk and benefit explained in detail.
[2017-09-05] MEDS ORDERED: Propofol 10 mg/ml Inj (20 ML) ONE (13:00)
[2017-09-05 17:07] LABS: BASO # 0.1 K/uL (0.0-0.2); BASO % 0.8 % (0.0-2.0); EOS # 0.3 K/uL (0.0-0.7); HEMATOCRIT 29.6 % (34.0-47.0); LYMPH # 2.7 K/uL (1.0-4.3); LYMPH % 32.7 % (20.0-40.0); MEAN CORPUSCULAR HEMOGLOBIN 29.1 pg (27.0-31.0); MEAN CORPUSCULAR HGB CONC 33.1 g/dL (33.0-37.0); MEAN PLATELET VOLUME 6.7 fL (7.2-11.7); MONO # 0.7 K/uL (0.0-0.8); MONO % 8.9 % (0.0-10.0); RED CELL DISTRIBUTION WIDTH 13.8 % (11.5-14.5); WHITE BLOOD COUNT 8.2 K/uL (4.8-10.8)
[2017-09-05 17:24] LABS: ALB/GLOB RATIO 0.9 (1.0-2.1); ALKALINE PHOSPHATASE 85 U/L (38-126); ALT/SGPT 52 U/L (9-52); AST/SGOT 35 U/L (14-36); BILIRUBIN,TOTAL 0.8 mg/dL (0.2-1.3); BLOOD UREA NITROGEN 18 mg/dL (7-17); CALCIUM 8.5 mg/dl (8.6-10.4); CARBON DIOXIDE 20 mmol/L (22-30); CHLORIDE 103 mmol/L (98-107); GFR AFRICAN-AMERICAN > 60; GLUCOSE,RANDOM 99 mg/dL (65-105); POTASSIUM 4.1 mmol/L (3.6-5.2); SODIUM 134 mmol/L (132-148); TOTAL PROTEIN 7.6 g/dL (6.3-8.3)
[2017-09-05 18:08] VITALS: RESP 20
--- NOTE | 2017-09-05 22:48 | CP.PCM.PN ---
Subjective - Date & Time of Evaluation Date of Evaluation: 09/05/17 Time of Evaluation: 10:00 - Subjective Subjective: Patient seen and examined at bedside. She is NPO for endoscopy today with GI. She denies abdominal pain. She denies nausea or vomiting. Denies fever or chills. Objective - Vital Signs/Intake and Output Vital Signs (last 24 hours): Temp Pulse Resp BP Pulse Ox 98 F 91 H 20 122/80 99 09/05/17 15:25 09/05/17 15:25 09/05/17 15:25 09/05/17 15:25 09/05/17 15:25 Intake and Output: 09/05/17 09/06/17 18:59 06:59 Intake Total 220 Balance 220 - Medications Medications: Current Medications Acetaminophen (Tylenol 325mg Tab) 650 mg PO Q6 PRN PRN Reason: Headache Last Admin: 09/05/17 21:18 Dose: 650 mg Enoxaparin Sodium (Lovenox) 40 mg SC DAILY [facility] Last Admin: 09/05/17 09:17 Dose: Not Given Famotidine (Pepcid) 20 mg IVP Q12 [facility] Last Admin: 09/05/17 21:18 Dose: 20 mg Cefepime HCl (Maxipime Iv 1 Gm Premix) 1 gm in 50 mls @ 100 mls/hr IVPB Q12H [facility] Last Admin: 09/05/17 13:56 Dose: 100 mls/hr Morphine Sulfate (Morphine) 2 mg IVP Q4 PRN PRN Reason: Pain, moderate (4-7) Last Admin: 09/04/17 19:23 Dose: 2 mg Ondansetron HCl (Zofran Inj) 4 mg IVP Q8 PRN PRN Reason: Nausea/Vomiting - Labs Labs: 09/05/17 17:01 09/05/17 17:01 PT 12.7 SECONDS (9.7-12.2) H 09/03/17 09:19 INR 1.1 09/03/17 09:19 APTT 33 SECONDS (21-34) D 09/03/17 09:19 Assessment and Plan (1) Elevated LFTs Status: Acute (2) Gastritis Status: Acute (3) Abdominal pain Status: Acute (4) Common bile duct calculus Status: Acute (5) Choledochitis Status: Acute
[2017-09-06] MEDS: Cefepime IV 1 gm in Dextrose 1 GM/50 ML BAG IVPB SCH ×2 (00:11→11:16)
[2017-09-06 08:52] VITALS: BP 116/69; PULSE 97; TEMP 97.8; O2SAT 97
[2017-09-06] MEDS: Enoxaparin 40 mg Syringe SC SCH ×2 (09:31→14:33)
--- NOTE | 2017-09-06 09:53 | US ---
HISTORY: ABNORMAL L F T. COMPARISON: CT abdomen/ pelvis 08/30/2017. TECHNIQUE: Sonographic evaluation of the abdomen. FINDINGS: LIVER: Measures 16.7 cm. Diffusely increased echogenicity of the liver parenchyma. In the far posterior right lobe of the liver there is a rounded hypoechoic solid mass, 2.1 x 2.7 x 2.8 cm. In retrospect, there is a corresponding mass identified on CT examination an MR examination along the border of the liver, extending to the right posterior para renal space. No other discrete mass is identified. No intrahepatic biliary dilatation. GALLBLADDER: Status post cholecystectomy COMMON BILE DUCT: Measures 8 mm. Consistent with prior cholecystectomy PANCREAS: Unremarkable as visualized. No mass. No ductal dilatation. RIGHT KIDNEY: Measures 12.2cm. Normal cortical echogenicity. Simple mid renal cortical cyst, 1.5 x 1.7 x 1.9 cm. No hydronephrosis. No calculus. Medullary nephrocalcinosis is evident. LEFT KIDNEY: Measures 11.6cm. Normal echogenicity. No calculus, mass, or hydronephrosis. Medullary nephrocalcinosis is evident. SPLEEN: Normal in size and contour. No mass. AORTA: No aneurysmal dilatation. IVC: Unremarkable. OTHER FINDINGS: None. IMPRESSION: Mass along the periphery of the posterior right hepatic lobe, possibly hepatic in origin or representing an implant. This corresponds to a mass identified on recent CT and MRI examination. No other hepatic mass. Fatty infiltration of the liver. Bilateral renal medullary nephrocalcinosis. 1.9 cm mid right renal cortical cyst. Status post cholecystectomy.
--- NOTE | 2017-09-06 13:02 | CP.PCM.PN ---
<Janett Delgado S - Last Filed: 09/06/17 17:54> Subjective - Date & Time of Evaluation Date of Evaluation: 09/06/17 Time of Evaluation: 11:00 - Subjective Subjective: Pt seen and examined , awake, alert, ox3, states feels better, abdominal pain improved , denies any N/V , tolerating diet labs back to normal a febrile Objective - Vital Signs/Intake and Output Vital Signs (last 24 hours): Temp Pulse Resp BP Pulse Ox 97.8 F 97 H 20 116/69 97 09/06/17 08:00 09/06/17 08:00 09/06/17 08:00 09/06/17 08:00 09/06/17 08:00 Intake and Output: 09/06/17 09/06/17 06:59 18:59 Intake Total 900 Balance 900 - Medications Medications: Current Medications Acetaminophen (Tylenol 325mg Tab) 650 mg PO Q6 PRN PRN Reason: Headache Last Admin: 09/05/17 21:18 Dose: 650 mg Enoxaparin Sodium (Lovenox) 40 mg SC DAILY [facility] Last Admin: 09/06/17 09:31 Dose: Not Given Famotidine (Pepcid) 20 mg IVP Q12 [facility] Last Admin: 09/06/17 09:31 Dose: 20 mg Cefepime HCl (Maxipime Iv 1 Gm Premix) 1 gm in 50 mls @ 100 mls/hr IVPB Q12H [facility] Last Admin: 09/06/17 11:16 Dose: 100 mls/hr Morphine Sulfate (Morphine) 2 mg IVP Q4 PRN PRN Reason: Pain, moderate (4-7) Last Admin: 09/04/17 19:23 Dose: 2 mg Ondansetron HCl (Zofran Inj) 4 mg IVP Q8 PRN PRN Reason: Nausea/Vomiting - Labs Labs: 09/05/17 17:01 09/05/17 17:01 PT 12.7 SECONDS (9.7-12.2) H 09/03/17 09:19 INR 1.1 09/03/17 09:19 APTT 33 SECONDS (21-34) D 09/03/17 09:19 <Darvin Ford - Last Filed: 09/06/17 22:24> Objective - Vital Signs/Intake and Output Vital Signs (last 24 hours): Temp Pulse Resp BP Pulse Ox 97.8 F 97 H 20 116/69 97 09/06/17 08:00 09/06/17 08:00 09/06/17 08:00 09/06/17 08:00 09/06/17 08:00 - Labs Labs: 09/05/17 17:01 09/05/17 17:01 PT 12.7 SECONDS (9.7-12.2) H 09/03/17 09:19 INR 1.1 09/03/17 09:19 APTT 33 SECONDS (21-34) D 09/03/17 09:19 Assessment and Plan (1) Elevated LFTs Status: Acute (2) Gastritis Status: Acute (3) Abdominal pain Status: Acute (4) Common bile duct calculus Status: Acute (5) Choledochitis Status: Acute
[2017-09-06] MEDS ORDERED: Pneumococcal 23-Valent Vaccine IM ONE (14:15)
--- NOTE | 2017-09-06 14:59 | PN ---
DATE: LOCATION: [facility], bed A. SUBJECTIVE: This is a 52-year-old female seen and examined early in rounds without reported abdominal pain. No jaundice. No active bleeding. The entire chart is reviewed including but not limited to the most recent lab and radiology study results, current and the previous medication list, current and the previous medical events. LABORATORY DATA: The most recent lab result done yesterday showed hemoglobin of 9.8, hematocrit 29.6, stable. The patient has her menstruation. Also showed normal liver function test completely. Ultrasound of abdomen to be done today, no official report yet. PHYSICAL EXAMINATION: GENERAL: A 52-year-old female. VITAL SIGNS: Afebrile, with pulse of 92, respiratory rate 20 to 22, blood pressure 130/66. HEENT: Showed pale, dry oral mucous membrane, nonicteric sclerae bilaterally. LUNGS: Clear. Breathing sounds are present bilaterally. HEART: Positive S1 and S2, with increased rate. ABDOMEN: Soft with slight mid epigastric as well as right upper quadrant tenderness. No mass or organomegaly. No rebound tenderness or guarding. EXTREMITIES: Without edema, clubbing or cyanosis. NEUROLOGIC: No reported neurological deficits, sensory or motor. IMPRESSION: 1. Status post cholecystectomy gallbladder stone, please see magnetic resonance cholangiopancreatography report with inflammatory changes, improving clinically on antibiotics. 2. Peptic ulcer disease, patient is status post upper endoscopy yesterday, pathology report is still pending from the biopsy. 3. Abnormal cancer antigen 19-9, which could be refractory inflammatory changes rather than actual pancreatic cancer, still awaiting repeat ultrasound of the abdomen. SUGGESTION: 1. Continue current management. 2. No need for aggressive ERCP in the meantime. 3. Further recommendation to follow. Katie Lopez MD
--- NOTE | 2017-09-06 22:32 | CP.PCM.DIS ---
Provider - Provider Date of Admission: 08/30/17 15:02 Attending physician: Darvin Ford MD Time Spent in preparation of Discharge (in minutes): 56 Diagnosis - Discharge Diagnosis (1) Elevated LFTs Status: Acute (2) Gastritis Status: Acute (3) Abdominal pain Status: Acute (4) Common bile duct calculus Status: Acute (5) Choledochitis Status: Acute Hospital Course - Lab Results Lab Results: Micro Results 09/03/17 18:00 Urine Urine Culture - Final No Growth (<1,000 CFU/ML) 08/30/17 Unknown Urine Urine Culture - Final Escherichia Coli Most Recent Lab Values WBC 8.2 K/uL (4.8-10.8) 09/05/17 17: RBC 3.37 Mil/uL (3.80-5.20) L 09/05/17 17:01 Hgb 9.8 g/dL (11.0-16.0) L 09/05/17 17: Hct 29.6 % (34.0-47.0) L 09/05/17 17: MCV 88.0 fL (81.0-99.0) 09/05/17 17: MCH 29.1 pg (27.0-31.0) 09/05/17 17:01 MCHC 33.1 g/dL (33.0-37.0) 09/05/17 17:01 RDW 13.8 % (11.5-14.5) 09/05/17 17:01 Plt Count 332 K/uL (130-400) 09/05/17 17:01 MPV 6.7 fL (7.2-11.7) L 09/05/17 17:01 Neut % (Auto) 54.6 % (50.0-75.0) 09/05/17 17: Lymph % (Auto) 32.7 % (20.0-40.0) 09/05/17 17: [place] % (Auto) 8.9 % (0.0-10.0) 09/05/17 17:01 Eos % (Auto) 3.0 % (0.0-4.0) 09/05/17 17: Baso % (Auto) 0.8 % (0.0-2.0) 09/05/17 17:01 Neut # 4.5 K/uL (1.8-7.0) 09/05/17 17:01 Lymph # 2.7 K/uL (1.0-4.3) 09/05/17 17:01 [place] # 0.7 K/uL (0.0-0.8) 09/05/17 17:01 Eos # 0.3 K/uL (0.0-0.7) 09/05/17 17:01 Baso # 0.1 K/uL (0.0-0.2) 09/05/17 17:01 Neutrophils % (Manual) 87 % (50-75) H 08/31/17 11:25 Band Neutrophils % 1 % (0-2) 08/31/17 11:25 Lymphocytes % (Manual) 8 % (20-40) L 08/31/17 11:25 Reactive Lymphs % 1 % (0-0) H 08/31/17 11:25 Monocytes % (Manual) 3 % (0-10) 08/31/17 11:25 Toxic Granulation Present 08/31/17 11:25 Platelet Estimate Normal (NORMAL) 08/31/17 11:25 RBC Morphology Normal 08/30/17 10:13 Anisocytosis (manual) Slight 08/31/17 11:25 PT 12.7 SECONDS (9.7-12.2) H 09/03/17 09:19 INR 1.1 09/03/17 09:19 APTT 33 SECONDS (21-34) D 09/03/17 09:19 Sodium 134 mmol/L (132-148) 09/05/17 17:01 Potassium 4.1 mmol/L (3.6-5.2) 09/05/17 17:01 Chloride 103 mmol/L (98-107) 09/05/17 17:01 Carbon Dioxide 20 mmol/L (22-30) L 09/05/17 17:01 Anion Gap 15 (10-20) 09/05/17 17:01 BUN 18 mg/dL (7-17) H 09/05/17 17:01 Creatinine 1.1 mg/dL (0.7-1.2) 09/05/17 17:01 Est GFR ( Amer) > 60 09/05/17 17:01 Est GFR (Non-Af Amer) 52 09/05/17 17:01 Random Glucose 99 mg/dL (65-105) 09/05/17 17:01 Calcium 8.5 mg/dl (8.6-10.4) L 09/05/17 17:01 Total Bilirubin 0.8 mg/dL (0.2-1.3) 09/05/17 17:01 AST 35 U/L (14-36) 09/05/17 17:01 ALT 52 U/L (9-52) 09/05/17 17:01 Alkaline Phosphatase 85 U/L (38-126) 09/05/17 17:01 Total Protein 7.6 g/dL (6.3-8.3) 09/05/17 17:01 Albumin 3.6 g/dL (3.5-5.0) 09/05/17 17:01 Globulin 4.0 gm/dL (2.2-3.9) H 09/05/17 17:01 Albumin/Globulin Ratio 0.9 (1.0-2.1) L 09/05/17 17:01 Amylase 122 U/L (30-110) H 09/03/17 09:19 Lipase 283 U/L (23-300) 09/03/17 09:19 Alpha Fetoprotein 1.1 ng/mL (0.0-7.5) 08/31/17 11:25 Carcinoembryonic Ag 1.0 ng/mL (0-3.0) 08/31/17 11:25 CA 19-9 Antigen 105 U/mL (0-37) H 08/31/17 11:25 CA 125 Antigen 20.2 U/mL (0-35) 08/31/17 11:25 Urine Color Yellow (YELLOW) 09/03/17 19:33 Urine Clarity Clear (Clear) 09/03/17 19:33 Urine pH 6.0 (5.0-8.0) 09/03/17 19:33 Ur Specific [place] 1.015 (1.003-1.030) 09/03/17 19:33 Urine Protein 2+ mg/dL (NEGATIVE) H 09/03/17 19:33 Urine Glucose (UA) Normal mg/dL (Normal) 09/03/17 19:33 Urine Ketones Negative mg/dL (NEGATIVE) 09/03/17 19:33 Urine Blood 3+ (NEGATIVE) H 09/03/17 19:33 Urine Nitrate Negative (NEGATIVE) 09/03/17 19:33 Urine Bilirubin Negative (NEGATIVE) 09/03/17 19:33 Urine Urobilinogen Normal mg/dL (0.2-1.0) 09/03/17 19:33 Ur Leukocyte Esterase Neg [place]/uL (Negative) 09/03/17 19:33 Urine WBC (Auto) 18 /hpf (0-5) H 09/03/17 19:33 Urine RBC (Auto) 290 /hpf (0-3) H 09/03/17 19:33 Ur Squamous Epith Cells 3 /hpf (0-5) 09/03/17 19:33 Urine Bacteria Rare (<OCC) 09/03/17 19:33 Urine HCG, Qual Negative (NEGATIVE) 09/05/17 06:09 Hepatitis A IgM Ab Negative (NEGATIVE) 08/31/17 11:25 Hep Bs Antigen Negative (NEGATIVE) 08/31/17 11:25 Hep B Core IgM Ab Negative (NEGATIVE) 08/31/17 11:25 Hepatitis C Antibody Negative (NEGATIVE) 08/31/17 11:25 - Hospital Course Hospital Course: Pt seen and examined , awake, alert, ox3, states feels better, abdominal pain improved , denies any N/V , tolerating diet labs back to normal a febrile pt is for dicsharge Discharge Exam - Head Exam Head Exam: ATRAUMATIC, NORMAL INSPECTION - Eye Exam Eye Exam: EOMI, Normal appearance, PERRL Pupil Exam: NORMAL ACCOMODATION, PERRL - Respiratory Exam Respiratory Exam: Chest Wall Tenderness, NORMAL BREATHING PATTERN - Cardiovascular Exam Cardiovascular Exam: REGULAR RHYTHM, +S1, +S2 - GI/Abdominal Exam GI & Abdominal Exam: Normal Bowel Sounds - Rectal Exam Rectal Exam: Deferred Discharge Plan - Discharge Medications Prescriptions: Metronidazole [Flagyl] 500 mg PO Q8 #42 tablet Levofloxacin [Levaquin] 500 mg PO DAILY #14 tablet Famotidine [Pepcid] 20 mg PO DAILY #14 tab - Follow Up Plan Condition: STABLE Disposition: HOME/ ROUTINE Instructions: Famotidine (By mouth), Metronidazole (By mouth), Levofloxacin ( By mouth), Gastritis (DC), Low Fat Diet (DC), Leukocytosis (DC), Abdominal Pain (ED) Additional Instructions: Please f/u with Dr. Schwartz in [facility] in 2 weeks - call an dmake appointment - [phone]_ chaunceyjose carlosdavid or [phone] [place] Continue antibiotics for 14 days f/u with Dr. Ford /SOPHIA in 1 week- discharge f/u visit Resume all other home medication Referrals: Waldemar Mondragon MD [Staff Provider] -
--- NOTE | 2017-09-08 10:52 | PQF GENQUE ---
This form is a permanent part of the medical record Dr. Griffith, This patient had cholecystectomy done in another hospital few days before coming in with abdominal pain. MRCP showed probable dropped off stone and inflammation. 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 Thank youo. Clarification of your documentation is requested to better reflect the severity of illness and intensity of treatment of your patient. Indicators present [] Specify: [] [] Specify: [] [] Specify: [] [] Specify: [] Location in the medical record that reflects the above clinical findings: [] Treatment Provided: [] PHYSICIAN'S RESPONSE Based on your medical judgment of the clinical indicators outlined above please clarify the following: [] Practitioner response [] If unable to determine, please check the box, sign and date. Present On Admission (POA) Indicator: [] Present at the time of admission [] Not present at the time of admission [] Clinically Undetermined In responding to this query, please exercise your independent professional judgment. The fact that a question is asked does not imply that any particular answer is desired or expected. Thank you for your clarification on this documentation. 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
== END 2017-09-06 15:56 | disposition home or self-care (01) | DRG 207 ==
LOC: C.ER 09:32 → C.9E 15:02 → C.3T 18:33
PROVIDERS: ADMIT Internal Medicine; ATTEND Internal Medicine
PROC: 0DB68ZX Excision of Stomach, Via Natural or Artificial Opening Endoscopic, Diagnostic (ICD-10-PCS; principal; 2017-09-05 12:46)
DX: K91.5 Postcholecystectomy syndrome (principal); E87.2 Acidosis; K75.9 Inflammatory liver disease, unspecified; Y83.8 Other surgical procedures as the cause of abnormal reaction of the patient, or of later complication, without mention of misadventure at the time of the procedure; K29.70 Gastritis, unspecified, without bleeding; D63.8 Anemia in other chronic diseases classified elsewhere; I10 Essential (primary) hypertension; K27.9 Peptic ulcer, site unspecified, unspecified as acute or chronic, without hemorrhage or perforation; R79.1 Abnormal coagulation profile; Z90.49 Acquired absence of other specified parts of digestive tract

== ENCOUNTER 2018-03-04 23:40 | Emergency (ER) | payer MEDICAID ==
[2018-03-05 00:48] VITALS: TEMP 99; O2SAT 98
--- NOTE | 2018-03-05 00:55 | C.PDOC ---
History Of Present Illness 53 year old female brought in to the ED by ALS c/o chest pain that started today at 17:00. Patient was given aspirin 325 mg in the field. Patient reports she had a severe migraine that has been on and off for a week. Patient went to see her PMD who prescribed her phrenillil forte for her migraine with minimal relief. Patient denies fever, chills, nausea, vomit, photophobia, SOB. Time Seen by Provider: 03/05/18 00:55 Chief Complaint (Nursing): Chest Pain History Per: Patient History/Exam Limitations: no limitations Onset/Duration Of Symptoms: Hrs Current Symptoms Are (Timing): Still Present Severity: Mild Pain Scale Rating Of: 4 Quality: "Pain" Modifying Factors: None Exacerbating Factors: None Alleviating Factors: None Recent travel outside of the [place]: No Additional History Per: Patient Past Medical History Reviewed: Historical Data, Nursing Documentation, Vital Signs Vital Signs: Last Vital Signs Temp 99 F 03/04/18 23:40 Pulse 98 H 03/05/18 03:20 Resp 16 03/05/18 03:20 BP 100/56 L 03/05/18 03:20 Pulse Ox 98 03/05/18 03:20 - Medical History PMH: Gall Bladder Disease, HTN Denies: Chronic Kidney Disease Surgical History: Cholecystectomy - [facility] Procedures EXCISION OF STOMACH, ENDO, DIAGN (08/30/17) Family History: States: No Known Family Hx - Social History Hx Tobacco Use: No Hx Alcohol Use: No Hx Substance Use: No - Immunization History Hx Tetanus Toxoid Vaccination: No Hx Influenza Vaccination: Yes (08/2016) Hx Pneumococcal Vaccination: No Review Of Systems Constitutional: Negative for: Fever, Chills Eyes: Negative for: Vision Change Cardiovascular: Positive for: Chest Pain. Negative for: Palpitations Respiratory: Negative for: Shortness of Breath Gastrointestinal: Negative for: Nausea, Vomiting Skin: Negative for: Rash Neurological: Negative for: Headache, Dizziness Physical Exam - Physical Exam Appears: Non-toxic, No Acute Distress Skin: Warm, Dry Head: Normacephalic Eye(s): bilateral: Normal Inspection Oral Mucosa: Moist Neck: Supple Chest: Symmetrical Cardiovascular: Rhythm Regular Respiratory: No Rales, No Rhonchi, No Wheezing Gastrointestinal/Abdominal: Soft, No Tenderness, No Guarding, No Rebound Extremity: Normal ROM, No Tenderness, No Swelling Extremity: Bilateral: Atraumatic Neurological/Psych: Oriented x3, Normal Speech Gait: Steady ED Course And Treatment - Laboratory Results Result Diagrams: 03/05/18 01:04 03/05/18 01:04 ECG: Interpreted By Me, Viewed By Me ECG Rhythm: Sinus Rhythm (106), Nonspecific Changes O2 Sat by Pulse Oximetry: 98 (ON RA) Pulse Ox Interpretation: Normal - Radiology CXR: Interpreted by Me, Viewed By Me Progress Note: Plan: - CT head. - EKG. - Labs. - CXR. - Morphine 2 mg IVP. - Zofran 4 mg IVP. Pt is pain free and wants to go home Reevaluation Time: 04:04 Reassessment Condition: Improved Medical Decision Making Medical Decision Making: Upon provider reevaluation patient is feeling better, is medically stable, and requires no further treatment in the ED at this time. Patient will be discharged home with Rx for toradol and zofran . Counseling was provided and all questions were answered regarding diagnosis and need for follow up with the referred clinic. There is agreement to discharge plan. Return if symptoms persist or worsen. Disposition Counseled Patient/Family Regarding: Studies Performed, Diagnosis, Need For Followup, Rx Given - Disposition Referrals: [facility] [Outside] [facility] [Outside] Disposition: HOME/ ROUTINE Disposition Time: 00:55 Condition: FAIR Additional Instructions: Please return if symptoms recur Prescriptions: Ondansetron ODT [Zofran ODT] 1 odt PO BID PRN #6 odt PRN Reason: Nausea/Vomiting traMADol [Ultram] 50 mg PO QID PRN #20 tab PRN Reason: Pain, Severe (8-10) Instructions: Migraine Headache (DC) Forms: [employer] (Indian) - Clinical Impression Clinical Impression: Migraine - Scribe Statement The provider has reviewed the documentation as recorded by the Scribe Joshua Lazaro All medical record entries made by the Scribe were at my direction and personally dictated by me. I have reviewed the chart and agree that the record accurately reflects my personal performance of the history, physical exam, medical decision making, and the department course for this patient. I have also personally directed, reviewed, and agree with the discharge instructions and disposition.
[2018-03-05] MEDS ORDERED: Morphine 4 MG/ML VIAL ONE ×2 (01:10→02:49)
[2018-03-05 01:17] LABS: BASO # 0.1 K/uL (0.0-0.2); BASO % 0.6 % (0.0-2.0); EOS # 0.3 K/uL (0.0-0.7); EOS % 2.8 % (0.0-4.0); HEMOGLOBIN 10.5 g/dL (11.0-16.0); LYMPH # 1.7 K/uL (1.0-4.3); LYMPH % 13.2 % (20.0-40.0); MEAN CORPUSCULAR HEMOGLOBIN 31.4 pg (27.0-31.0); MEAN CORPUSCULAR HGB CONC 34.9 g/dL (33.0-37.0); MEAN PLATELET VOLUME 6.9 fL (7.2-11.7); MONO # 0.8 K/uL (0.0-0.8); MONO % 6.2 % (0.0-10.0); NEUT # 9.8 K/uL (1.8-7.0); NEUT % 77.2 % (50.0-75.0); RBC 3.35 Mil/uL (3.80-5.20); RED CELL DISTRIBUTION WIDTH 12.9 % (11.5-14.5); WHITE BLOOD COUNT 12.7 K/uL (4.8-10.8)
[2018-03-05 01:18] LABS: INR 1.1; PROTHROMBIN TIME 11.8 SECONDS (9.7-12.2)
[2018-03-05 01:36] LABS: B-TYPE NATRIURETIC PEPTIDE 173 pg/mL (0-900)
[2018-03-05 01:43] LABS: ALB/GLOB RATIO 0.9 (1.0-2.1); ALBUMIN 3.9 g/dL (3.5-5.0); ALT/SGPT < 6 U/L (9-52); AST/SGOT 19 U/L (14-36); BLOOD UREA NITROGEN 22 mg/dL (7-17); CALCIUM 9.7 mg/dl (8.6-10.4); GFR AFRICAN-AMERICAN 52; GFR NON-AFRICAN AMERICAN 43
--- NOTE | 2018-03-05 02:05 | CT ---
EXAM: CT Head Without Intravenous Contrast CLINICAL HISTORY: 53 years old, female; Pain; Headache TECHNIQUE: Axial computed tomography images of the head/brain without intravenous contrast. All CT scans at this facility use one or more dose reduction techniques, viz.: automated exposure control; ma/kV adjustment per patient size (including targeted exams where dose is matched to indication; i.e. head); or iterative reconstruction technique. COMPARISON: No relevant prior studies available. FINDINGS: Brain: Minimal atrophy. No intracranial hemorrhage. No mass. Few scattered subtle foci of decreased attenuation within periventricular/subcortical white matter. No definite edema. Ventricles: No hydrocephalus. Bones/joints: No acute fracture. Soft tissues: Unremarkable. Sinuses: Mild focal mucosal thickening/inspissated mucous of RIGHT maxillary sinus. Mastoid air cells: No mastoid effusion. Orbits: Unremarkable as visualized. IMPRESSION: 1. Nonspecific white matter changes. Acute infarction may be CT occult within first 24 hours. If a focal deficit persists, consider followup CT or MRI for further evaluation. 2. Incidental/non-acute findings are described above.
[2018-03-05 03:23] VITALS: BP 100/56; PULSE 98; RESP 16
--- NOTE | 2018-03-05 08:59 | RAD ---
PROCEDURE: CHEST RADIOGRAPH, 1 VIEW HISTORY: chest pain COMPARISON: Portable chest 08/28/2017. FINDINGS: LUNGS: Diminished inspiratory volume noted. Some crowding of the bilateral bronchovascular markings is appreciated. No definite alveolitis bilaterally. PLEURA: No pneumothorax or pleural fluid seen. CARDIOVASCULAR: Normal. OSSEOUS STRUCTURES: No significant abnormalities. VISUALIZED UPPER ABDOMEN: Normal. OTHER FINDINGS: None. IMPRESSION: Diminished inspiratory volume noted. Crowding of the bronchovascular markings is mildly appreciated at the bases without definite intrinsic airspace disease evident.
== END 2018-03-05 04:17 | disposition home or self-care (01) ==
LOC: C.ER 23:40
DX: G43.909 Migraine, unspecified, not intractable, without status migrainosus (principal); I10 Essential (primary) hypertension
CPT/HCPCS: 70450; 71045; 80053; 83880; 84484; 85025; 85610; 85730; 96374; 96375; 96376; 99285; J1885; J2270; J2405